=== PATIENT | female | born 1980 | race Caucasian/White ===

== ENCOUNTER 2016-06-13 09:05 | Emergency (ER) | payer MEDICAID ==
[~2016-06-13] VITALS: Ht 165.1 cm; Wt 95.7 kg
[~2016-06-13 09:05] MED LIST: CITA20 PO; CLON1 PO; TRAZ100 PO; XANA0.5T PO
[2016-06-13 09:14] VITALS: BP 128/92; PULSE 83; RESP 16; TEMP 98; O2SAT 99
[2016-06-13] MEDS ORDERED: CLON1 PO (09:51)
[2016-06-13] MEDS ORDERED: DIAZ10 PO (09:51)
[2016-06-13] MEDS ORDERED: SODIUM CHLOR 0.9% 1000 ML INJ 1,000 ML IV SCH (09:52)
[2016-06-13] MEDS ORDERED: ONDANSETRON HCL 4 MG/2 ML VIAL IVP ONE (10:00)
[2016-06-13] MEDS ORDERED: MORPHINE SULFATE 4 MG/ML INJ IV ONE (10:00)
[2016-06-13] MEDS ORDERED: SODIUM CHLORIDE 0.9% FLUSH 5 ML FLUSH IVF PRN (10:00)
--- NOTE | 2016-06-13 10:03 | PD ---
HPI Chief Complaint: Pain: Acute or Chronic Time Seen by Provider: 09:48 Travel History International Travel<30 days: No Contact w/Intl Traveler<30days: No Traveled to known affect area: No History of Present Illness HPI 36 year-old female states she tripped and landed on a coffee table and has pain to her right rib area. She feels like she broke a bone. She denies other complaints. She denies taking blood thinner medications. She did not hit her head. Quality pain is sharp. Severity is moderate. Pain is worse with movement. She denies other modifying factors. PFSH Past Medical History Anxiety: Yes Depression: Yes Cancer: No Cardiovascular Problems: Yes Diabetes: No Diminished Hearing: No Gastrointestinal Disorders: Yes Genitourinary: Yes Musculoskeletal: Yes Neurologic: Yes Psychiatric: Yes (DR. BRAYAN HOFFMAN) Respiratory: Yes Immunizations Current: Yes Tetanus Vaccination: < 5 Years Influenza Vaccination: No ?: Not LMP: 06/02/16 : 1 Para: 1 Miscarriage: 0 : 0 Past Surgical History Body Medical Devices: IUD Other Surgery: Yes (1988 PILONDIAL CYST) Social History Alcohol Use: Yes (Socially) Tobacco Use: Yes (04/21 PPD) Substance Use: Yes (Denies today) Allergies-Medications (Allergen,Severity, Reaction): Coded Allergies: No Known Allergies (Verified , 06/13/16) Reported Meds & Prescriptions Reported Meds & Active Scripts Active Reported Valium (Diazepam) 10 Mg Tab 10 Mg PO HS Klonopin (Clonazepam) 1 Mg Tab 1 Mg PO BID Review of Systems Except as stated in HPI: all other systems reviewed are Neg Physical Exam Narrative General: 36 y/o patient in no apparent distress Skin: Warm and dry Eyes: Pupils equal NECK: no pain with range of motion, nexus criteria negative Cardiovascular: Regular rate and rhythm Chest wall: Tender to right lower lateral ribs Respiratory: Normal respiratory effort noted, clear to auscultation bilaterally Abdomen: soft, tender right upper quadrant, nondistended; pulls my hand away with exam Back: No step-offs, midline spine nontender with palpation Extremities: No specific joint pain Neuro: awake, alert, sensation and motor grossly intact Data Data Last Documented VS Vital Signs Date Time Temp Pulse Resp B/P Pulse Ox O2 Delivery O2 Flow Rate FiO2 06/13/16 10:15 96 Room Air 06/13/16 10:15 62 18 140/87 06/13/16 09:14 98.0 Orders Basic Metabolic Panel (Bmp) (06/13/16 09:52) Complete Blood Count With Diff (06/13/16 09:52) Chest, Single Ap (06/13/16 09:52) Ct Abd/Pel W Iv Contrast(Rout) (06/13/16 09:52) Iv Access Insert/Monitor (06/13/16 09:52) Ecg Monitoring (06/13/16 09:52) Oximetry (06/13/16 09:52) Morphine Inj (Morphine Inj) (06/13/16 10:00) Ondansetron Inj (Zofran Inj) (06/13/16 10:00) Sodium Chlor 0.9% 1000 Ml Inj (Ns 1000 M (06/13/16 09:52) Sodium Chloride 0.9% Flush (Ns Flush) (06/13/16 10:00) Iohexol 350 Inj (Omnipaque 350 Inj) (06/13/16 11:11) Labs Laboratory Tests Test 06/13/16 10:00 White Blood Count 8.6 TH/MM3 Red Blood Count 4.74 MIL/MM3 Hemoglobin 12.8 GM/DL Hematocrit 39.5 % Mean Corpuscular Volume 83.5 FL Mean Corpuscular Hemoglobin 27.0 PG Mean Corpuscular Hemoglobin 32.3 % Concent Red Cell Distribution Width 13.6 % Platelet Count 381 TH/MM3 Mean Platelet Volume 7.8 FL Neutrophils (%) (Auto) 68.6 % Lymphocytes (%) (Auto) 23.5 % Monocytes (%) (Auto) 5.3 % Eosinophils (%) (Auto) 1.7 % Basophils (%) (Auto) 0.9 % Neutrophils # (Auto) 5.9 TH/MM3 Lymphocytes # (Auto) 2.0 TH/MM3 Monocytes # (Auto) 0.5 TH/MM3 Eosinophils # (Auto) 0.1 TH/MM3 Basophils # (Auto) 0.1 TH/MM3 CBC Comment DIFF FINAL Differential Comment Sodium Level 141 MEQ/L Potassium Level 4.5 MEQ/L Chloride Level 107 MEQ/L Carbon Dioxide Level 26.6 MEQ/L Anion Gap 7 MEQ/L Blood Urea Nitrogen 16 MG/DL Creatinine 0.96 MG/DL Estimat Glomerular Filtration 66 ML/MIN Rate Random Glucose 96 MG/DL Calcium Level 9.1 MG/DL MDM Medical Decision Making Medical Screen Exam Complete: Yes Emergency Medical Condition: Yes Medical Record Reviewed: Yes (past history confirmed) Interpretation(s) CBC & BMP Diagram 06/13/16 10:00 Last 24 hours Impressions Chest X-Ray 06/13/16951 Signed Impressions: Service Date/Time: Monday, June 13, 2016 10:49 - CONCLUSION: Normal examination for a patient of this age. Scot Delaney MD Abdomen/Pelvis CT 06/13/16951 Signed Impressions: Service Date/Time: Monday, June 13, 2016 10:58 - CONCLUSION: Negative for acute traumatic injury. Yg Jamil MD FACR Differential Diagnosis Fracture, strain, pneumothorax, liver laceration Narrative Course Will check blood work, trauma imaging and dose with morphine and Zofran and reevaluate ed workup no acute, Patient denies any new complaints, all questions answered. Patient knows that follow up is incumbent on them and to return to the emergency room immediately if new or worsening symptoms develop. Patient given strict return precautions, vitals reviewed and are normal, agrees to further workup as an outpatient. Diagnosis Primary Impression: Rib pain on right side Additional Impression: Abdominal pain Qualified Code: R10.11 - Right upper quadrant abdominal pain Patient Instructions: General Instructions Additional Instructions: return as needed, tylenol as needed, follow with primary Med/Other Pt SpecificInfo: No Change to Meds Disposition: 01 DISCHARGE HOME Condition: Stable Shelley Katz MD Jun 13, 2016 10:03
[2016-06-13 10:06] LABS: AUTOMATED NEUTROPHIL # 5.9 TH/MM3 (1.8-7.7); BASOPHIL # 0.1 TH/MM3 (0-0.2); BASOPHIL % 0.9 % (0.0-2.0); EOSINOPHIL # 0.1 TH/MM3 (0-0.4); EOSINOPHIL % 1.7 % (0.0-4.0); HEMATOCRIT 39.5 % (35.0-46.0); HEMO FLAGS DIFF FINAL; LYMPH % 23.5 % (9.0-44.0); MEAN CELL VOLUME 83.5 FL (80.0-100.0); MEAN CORPUSCULAR HGB CONC 32.3 % (32.0-36.0); MONO % 5.3 % (0.0-8.0); NEUT % 68.6 % (16.0-70.0); PLATELET COUNT 381 TH/MM3 (150-450); RED BLOOD COUNT 4.74 MIL/MM3 (4.00-5.30); RED CELL DISTRIBUTION WIDTH 13.6 % (11.6-17.2); WHITE BLOOD COUNT 8.6 TH/MM3 (4.0-11.0)
[2016-06-13 10:15] VITALS: BP 140/87; PULSE 62; RESP 18; O2SAT 96
[2016-06-13 10:24] LABS: POTASSIUM 4.5 MEQ/L (3.5-5.1)
[2016-06-13 10:28] LABS: BICARBONATE 26.6 MEQ/L (21.0-32.0)
--- NOTE | 2016-06-13 11:09 | RADHPO ---
EXAM DATE/TIME: 06/13/2016 10:49 [facility] COMPARISON: No previous studies available for comparison. INDICATIONS : Chest and rib pain after fall. MEDICAL HISTORY : None. SURGICAL HISTORY : None. ENCOUNTER: Initial ACUITY: 3 days PAIN SCORE: 10/10 LOCATION: Right lower chest FINDINGS: A single view of the chest demonstrates the lungs to be symmetrically aerated without evidence of mas s, infiltrate or effusion. The cardiomediastinal contours are unremarkable. Osseous structures are intact. CONCLUSION: Normal examination for a patient of this age. Scot Delaney MD on June 13, 2016 at 11:08 Board Certified Radiologist. This report was verified electronically.
[2016-06-13] MEDS ORDERED: IOHEXOL 350 MG/ML 10 ML VIAL (for RAD DIAG) IV ONE (11:11)
--- NOTE | 2016-06-13 11:19 | RADHPO ---
EXAM DATE/TIME: 06/13/2016 10:58 [facility] COMPARISON: No previous studies available for comparison. INDICATIONS : Trauma. Fell and hit right lower rib region on coffee table. IV CONTRAST: 85 cc Omnipaque 350 (iohexol) IV ORAL CONTRAST: No oral contrast ingested. RADIATION DOSE: 19.38 CTDIvol (mGy) MEDICAL HISTORY : None SURGICAL HISTORY : None. ENCOUNTER: Initial ACUITY: 2 days PAIN SCALE: 7/10 LOCATION: Right upper quadrant TECHNIQUE: Volumetric scanning of the abdomen and pelvis was performed. Using automated exposure control and adjustment of the mA and/or kV according to patient size, radiation dose was kept as low as reasonably achievable to obtain optimal diagnostic quality images. FINDINGS: The lung base is are clear. The liver, spleen, pancreas and adrenal glands are unremarkable. There is no splenic injury. There is symmetrical renal function. The pelvic contents are unremarkable. There is an IUD in place. Review of bone windows reveals no evidence for fracture. CONCLUSION: Negative for acute traumatic injury. Yg Jamil MD FACR on June 13, 2016 at 11:13 Board Certified Radiologist. This report was verified electronically.
== END 2016-06-13 11:57 | disposition home or self-care (01) ==
LOC: PHEFT 09:05
DX: R07.81 Pleurodynia (principal); R10.11 Right upper quadrant pain; F17.200 Nicotine dependence, unspecified, uncomplicated
CPT/HCPCS: 71010; 74177; 80048; 85025; 96374; 96375; 99284; J2270; J2405; J7030; Q9967

== ENCOUNTER 2016-09-08 14:39 | Emergency (ER) | payer MEDICAID ==
[~2016-09-08] VITALS: Ht 165.1 cm; Wt 96.8 kg
[~2016-09-08 14:39] MED LIST changes: -CITA20 PO; +DIAZ10 PO; -TRAZ100 PO; -XANA0.5T PO
[2016-09-08 14:59] VITALS: BP 141/95; PULSE 88; RESP 16; TEMP 98.3; O2SAT 98
[2016-09-08] MEDS ORDERED: CEPH-460 PO (17:10)
[2016-09-08] MEDS ORDERED: BACT800T5 PO (17:10)
--- NOTE | 2016-09-08 17:12 | PD ---
HPI Chief Complaint: Skin Problem Time Seen by Provider: 16:50 Travel History International Travel<30 days: No Contact w/Intl Traveler<30days: No Traveled to known affect area: No History of Present Illness HPI 36-year-old female presents to the emergency room for evaluation of a painful lesion to her right medial thigh. Patient states it started off as a small boil /ingrown hair and has been getting larger. She states 3 days ago it developed a head and she tried to pop it. The same day, she developed redness around the area. Patient denies any purulent drainage. She has not been applying anything to the area. States it has been extremely painful especially when she walks because her thighs rub together. She has been taking Excedrin without significant relief in symptoms. She denies fever, chills, nausea, and vomiting. PFSH Past Medical History Anxiety: Yes Depression: Yes Cancer: No Cardiovascular Problems: Yes Diabetes: No Diminished Hearing: No Gastrointestinal Disorders: Yes Genitourinary: Yes Implanted Vascular Access Dvce: Yes Musculoskeletal: Yes Neurologic: Yes Psychiatric: Yes (DR. BRAYAN HOFFMAN) Respiratory: Yes Immunizations Current: Yes Tetanus Vaccination: < 5 Years Influenza Vaccination: No ?: Not : 1 Para: 1 Miscarriage: 0 : 0 Past Surgical History Body Medical Devices: IUD Other Surgery: Yes (1988 PILONDIAL CYST) Social History Alcohol Use: Yes (Socially) Tobacco Use: Yes (/2 PPD) Substance Use: Yes (Denies today) Allergies-Medications (Allergen,Severity, Reaction): Coded Allergies: No Known Allergies (Verified , 09/08/16) Reported Meds & Prescriptions Reported Meds & Active Scripts Active Keflex (Cephalexin) 500 Mg Cap 500 Mg PO Q6H 10 Days Bactrim DS (Sulfamethoxazole-Trimethoprim) 800-160 Mg Tab 1 Tab PO BID Reported Valium (Diazepam) 10 Mg Tab 10 Mg PO HS Klonopin (Clonazepam) 1 Mg Tab 1 Mg PO BID Review of Systems Except as stated in HPI: all other systems reviewed are Neg Physical Exam Narrative GENERAL: Well-nourished, well-developed female in no acute distress. Afebrile. Ambulatory. SKIN: Focused skin assessment warm/dry. There is a 2 cm lesion without specific purulent drainage in the left medial thigh. There is a zone of inflammation around it measuring 19 x 10 cm but no lymphangitis. HEAD: Normocephalic. EYES: No scleral icterus. No injection or drainage. NECK: Supple, trachea midline. No JVD or lymphadenopathy. CARDIOVASCULAR: Regular rate and rhythm without murmurs, gallops, or rubs. RESPIRATORY: Breath sounds equal bilaterally. No accessory muscle use. PSYCHIATRIC: No delusional thought processes. No hallucinations. Data Data Last Documented VS Vital Signs Date Time Temp Pulse Resp B/P Pulse Ox O2 Delivery O2 Flow Rate FiO2 09/08/16 14:59 98.3 88 16 141/95 98 Orders Hydroxyzine Pamoate (Vistaril) (09/08/16 16:30) Wound Care (09/08/16 17:12) MDM Medical Decision Making Medical Screen Exam Complete: Yes Emergency Medical Condition: Yes Medical Record Reviewed: Yes Differential Diagnosis Cellulitis versus abscess versus hidradenitis suppurativa Narrative Course 36-year-old female presents to the emergency room for evaluation of red painful area to her right medial thigh for the past 3 days. She is afebrile and well- appearing in the emergency room. Vital signs stable. Physical exam reveals a 2 cm nondraining, nonindurated, nonfluctuant lesion with surrounding cellulitis. There is no appreciable abscess and no indication for incision and drainage at this time. The cellulitis measures 19 x 10 cm with no lymphangitis. While waiting to be seen, patient requested something for anxiety. She has history of anxiety. She was given Vistaril. Patient will be discharged with Bactrim and Keflex. Told to follow up with a primary care physician or return to the emergency room for worsening symptoms. She understands and agrees to plan. Diagnosis Primary Impression: Cellulitis of right thigh Referrals: Primary Care Physician Patient Instructions: Cellulitis (ED), General Instructions Departure Forms: Tests/Procedures, Work Release Enter return to work date: September 10, 2016 Additional Instructions: Rest and drink plenty of fluids. Take Bactrim as directed, until gone. Take Keflex as directed, until gone. Follow up with a primary care physician. Return to emergency room for worsening symptoms, as discussed. Med/Other Pt SpecificInfo: Prescription(s) given Scripts Cephalexin (Keflex)500 Mg Bus383 Mg PO Q6H 10 Days Ref 0 Prov:Kassie Nieto MD 09/08/16 Sulfamethoxazole-Trimethoprim (Bactrim DS)800-160 Mg Tab1 Tab PO BID #20 TAB Ref 0 Prov:Kassie Nieto MD 09/08/16 Disposition: 01 DISCHARGE HOME Condition: Stable Brenda Frias September 08, 2016 17:12
== END 2016-09-08 17:21 | disposition home or self-care (01) ==
LOC: PHED 14:39 → PHEFT 17:21
DX: L03.115 Cellulitis of right lower limb (principal); F41.8 Other specified anxiety disorders; F17.210 Nicotine dependence, cigarettes, uncomplicated
CPT/HCPCS: 99284

== ENCOUNTER 2016-09-23 18:22 | Emergency (ER) | payer MEDICAID ==
[~2016-09-23] VITALS: Ht 165.1 cm; Wt 97.3 kg
[~2016-09-23 18:22] MED LIST changes: +BACT800T5 PO; +CEPH-460 PO
[2016-09-23 18:27] VITALS: BP 138/91; PULSE 63; RESP 16; TEMP 97.9; O2SAT 100
== END 2016-09-23 19:10 | disposition left against medical advice (07) ==
LOC: PHEFT 18:22
DX: L98.8 Other specified disorders of the skin and subcutaneous tissue (principal)
CPT/HCPCS: 99281

== ENCOUNTER 2016-11-01 11:54 | Emergency (ER) | payer MEDICAID ==
[~2016-11-01] VITALS: Ht 172.7 cm; Wt 93.0 kg
[~2016-11-01 11:54] MED LIST changes: -BACT800T5 PO; -CEPH-460 PO
[2016-11-01 12:04] VITALS: BP 157/95; PULSE 87; RESP 18; TEMP 98.4; O2SAT 98
[2016-11-01] MEDS ORDERED: SODIUM CHLORIDE 0.9% FLUSH 10 ML FLUSH IVF PRN (12:15)
--- NOTE | 2016-11-01 12:22 | PD ---
HPI Chief Complaint: Anxiety Time Seen by Provider: 12:09 Travel History International Travel<30 days: No Contact w/Intl Traveler<30days: No Traveled to known affect area: No History of Present Illness HPI Patient is a 36-year-old female with a history of anxiety presents emergency department for evaluation of anxiety attack and states that she's also had a syncopal episode while trying to get out of the car today. Denies any chest pain shortness of breath abdominal pain nausea or vomiting. She admits that she 's been running out of her Klonopin early. She's had visits in the emergency department for this before and has run out of her Klonopin early before as well. She denies any suicidal homicidal ideation. States she's never had a syncopal episode before. States symptoms started just prior to arrival. PFSH Past Medical History Anxiety: Yes Depression: Yes Cancer: No Cardiovascular Problems: Yes Diabetes: No Diminished Hearing: No Gastrointestinal Disorders: Yes Genitourinary: Yes Implanted Vascular Access Dvce: Yes Musculoskeletal: Yes Neurologic: Yes Psychiatric: Yes (DR. BRAYAN HOFFMAN) Reproductive: Yes (IUD IN PLACE) Respiratory: Yes Immunizations Current: Yes Tetanus Vaccination: < 5 Years Influenza Vaccination: No ?: Not : 1 Para: 1 Miscarriage: 0 : 0 Past Surgical History Body Medical Devices: IUD Other Surgery: Yes (Pilonidal cyst ) Social History Alcohol Use: Yes (Occ.) Tobacco Use: Yes (04/22 PPD) Substance Use: No (Denies today) Allergies-Medications (Allergen,Severity, Reaction): Coded Allergies: No Known Allergies (Verified , 11/01/16) Reported Meds & Prescriptions Reported Meds & Active Scripts Active Reported Valium (Diazepam) 10 Mg Tab 10 Mg PO HS Klonopin (Clonazepam) 1 Mg Tab 1 Mg PO BID Review of Systems Except as stated in HPI: all other systems reviewed are Neg Physical Exam Narrative GENERAL: Well-developed well-nourished no obvious distress. SKIN: Focused skin assessment warm/dry. HEAD: Atraumatic. Normocephalic. EYES: Pupils equal and round. No scleral icterus. No injection or drainage. ENT: No nasal bleeding or discharge. Mucous membranes pink and moist. NECK: Trachea midline. No JVD. CARDIOVASCULAR: Regular rate and rhythm. No murmur appreciated. RESPIRATORY: No accessory muscle use. Clear to auscultation. Breath sounds equal bilaterally. GASTROINTESTINAL: Abdomen soft, non-tender, nondistended. Hepatic and splenic margins not palpable. MUSCULOSKELETAL: No obvious deformities. No clubbing. No cyanosis. No edema. NEUROLOGICAL: Awake and alert. No obvious cranial nerve deficits. Motor grossly within normal limits. Normal speech. PSYCHIATRIC: Anxious mood and affect, denies suicidal homicidal ideation, insight and judgment normal. Data Data Last Documented VS Vital Signs Date Time Temp Pulse Resp B/P Pulse Ox O2 Delivery O2 Flow Rate FiO2 11/01/16 12:32 99 Room Air 11/01/16 12:32 19 11/01/16 12:04 98.4 87 157/95 Orders Electrocardiogram (11/01/16 12:14) Basic Metabolic Panel (Bmp) (11/01/16 12:14) Complete Blood Count With Diff (11/01/16 12:14) Troponin I (11/01/16 12:14) Ecg Monitoring (11/01/16 12:14) Iv Access Insert/Monitor (11/01/16 12:14) Oximetry (11/01/16 12:14) Oxygen Administration (11/01/16 12:14) Sodium Chloride 0.9% Flush (Ns Flush) (11/01/16 12:15) Hydroxyzine Pamoate (Vistaril) (11/01/16 12:15) Labs Laboratory Tests Test 11/01/16 12:29 White Blood Count 8.9 TH/MM3 Red Blood Count 4.56 MIL/MM3 Hemoglobin 12.8 GM/DL Hematocrit 37.7 % Mean Corpuscular Volume 82.6 FL Mean Corpuscular Hemoglobin 28.0 PG Mean Corpuscular Hemoglobin 33.9 % Concent Red Cell Distribution Width 14.3 % Platelet Count 377 TH/MM3 Mean Platelet Volume 7.7 FL Neutrophils (%) (Auto) 75.4 % Lymphocytes (%) (Auto) 18.1 % Monocytes (%) (Auto) 5.3 % Eosinophils (%) (Auto) 0.8 % Basophils (%) (Auto) 0.4 % Neutrophils # (Auto) 6.7 TH/MM3 Lymphocytes # (Auto) 1.6 TH/MM3 Monocytes # (Auto) 0.5 TH/MM3 Eosinophils # (Auto) 0.1 TH/MM3 Basophils # (Auto) 0.0 TH/MM3 CBC Comment DIFF FINAL Differential Comment Sodium Level 140 MEQ/L Potassium Level 3.9 MEQ/L Chloride Level 106 MEQ/L Carbon Dioxide Level 27.1 MEQ/L Anion Gap 7 MEQ/L Blood Urea Nitrogen 9 MG/DL Creatinine 0.88 MG/DL Estimat Glomerular Filtration 73 ML/MIN Rate Random Glucose 99 MG/DL Calcium Level 8.9 MG/DL Troponin I LESS THAN 0.02 NG/ML MDM Medical Decision Making Medical Screen Exam Complete: Yes Emergency Medical Condition: Yes Interpretation(s) EKG shows sinus rhythm or sinus arrhythmia, overall rate of 75, normal axis normal R-wave progression. No concerning ST segment changes. Intervals within normal limits. This normal EKG. Differential Diagnosis Syncope, anemia, , arrhythmia, anxiety attack, PEs is been excluded by wells and PERC criteria. Narrative Course Patient roomed in the emergency department, basic laboratory workup including CBC CMP troponin have been ordered, the patient was given hydroxyzine in the emergency department. Initial workup is negative. While waiting for urine test was informed by nursing that the patient got up and left, patient 's mother is on the waiting room and asking to speak with me however I'm disinclined to give out any patient information at this time given privacy loss. The patient did not endorse any suicidal homicidal ideation and is not greatly disabled. She has eloped from the emergency department without discussion of her results or reassessment. Diagnosis Primary Impression: Syncope Additional Impression: Pantera Conley MD Nov 01, 2016 12:22
[2016-11-01 12:32] VITALS: RESP 19; O2SAT 99
[2016-11-01 12:34] LABS: AUTOMATED NEUTROPHIL # 6.7 TH/MM3 (1.8-7.7); BASOPHIL % 0.4 % (0.0-2.0); EOSINOPHIL # 0.1 TH/MM3 (0-0.4); EOSINOPHIL % 0.8 % (0.0-4.0); HEMATOCRIT 37.7 % (35.0-46.0); HEMO FLAGS DIFF FINAL; LYMPH % 18.1 % (9.0-44.0); LYMPHOCYTE # 1.6 TH/MM3 (1.0-4.8); MEAN CELL VOLUME 82.6 FL (80.0-100.0); MEAN CORPUSCULAR HGB CONC 33.9 % (32.0-36.0); MONO % 5.3 % (0.0-8.0); NEUT % 75.4 % (16.0-70.0); PLATELET COUNT 377 TH/MM3 (150-450); RED BLOOD COUNT 4.56 MIL/MM3 (4.00-5.30); RED CELL DISTRIBUTION WIDTH 14.3 % (11.6-17.2); WHITE BLOOD COUNT 8.9 TH/MM3 (4.0-11.0)
[2016-11-01 12:43] LABS: CHLORIDE 106 MEQ/L (98-107); POTASSIUM 3.9 MEQ/L (3.5-5.1); SODIUM (NA) 140 MEQ/L (136-145)
[2016-11-01 12:45] LABS: ANION GAP 7 MEQ/L (5-15); BICARBONATE 27.1 MEQ/L (21.0-32.0)
[2016-11-01 12:46] LABS: BLOOD UREA NITROGEN 9 MG/DL (7-18)
[2016-11-01 12:49] LABS: GLOMERULAR FILTRATION RATE 73 ML/MIN (>89)
--- NOTE | 2016-11-02 12:38 | EKG ---
Date Performed: 11/01/2016 Time Performed: 12:22:48 PTAGE: 36 years EKG: Sinus rhythm WITH SINUS ARRHYTHMIA Compared to prior tracing no significant change NORMAL ECG PREVIOUS TRACING : 01/31/2016 11.38 DOCTOR: Alphonso Henson Interpretating Date/Time 11/02/2016 12:34:10
== END 2016-11-01 13:37 | disposition home or self-care (01) ==
LOC: PHED 11:54
DX: R55 Syncope and collapse (principal); F41.9 Anxiety disorder, unspecified; F17.200 Nicotine dependence, unspecified, uncomplicated
CPT/HCPCS: 80048; 84484; 85025; 93005

== ENCOUNTER 2016-12-06 10:38 | Emergency (ER) | payer MEDICAID ==
[~2016-12-06] VITALS: Ht 165.1 cm; Wt 92.0 kg
[2016-12-06 11:45] VITALS: BP 148/93; PULSE 92; RESP 18; TEMP 98; O2SAT 98
[2016-12-06 11:48] LABS: BLOOD, URINE NEG (NEG); GLUCOSE,URINE NEG (NEG); KETONE, URINE NEG (NEG); NITRITE,URINE NEG (NEG); PH, URINE 5.5 (5.0-8.5)
[2016-12-06 11:51] LABS: METHOD OF COLLECTION CLEAN CATCH; URINE COLOR YELLOW (YELLW/STRAW)
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
[2016-12-06 11:52] LABS: COMMENT (UR) CULTURE INDICATED; CULTURE IF INDICATED CULTURE INDICATED; MUCUS URINE MOD /lpf (OCC); SQUAMOUS EPITHELIAL CELL URINE 0-5 /hpf (0-5)
[2016-12-06] MEDS ORDERED: IOHEXOL 350 MG/ML 10 ML VIAL (for RAD DIAG) IV ONE (11:55)
[2016-12-06] MEDS ORDERED: SODIUM CHLORIDE 0.9% FLUSH 10 ML FLUSH IV FLUSH PRN (12:00)
[2016-12-06 12:11] LABS: AUTOMATED NEUTROPHIL # 7.2 TH/MM3 (1.8-7.7); BASOPHIL % 0.4 % (0.0-2.0); EOSINOPHIL # 0.1 TH/MM3 (0-0.4); EOSINOPHIL % 0.7 % (0.0-4.0); HEMATOCRIT 35.7 % (35.0-46.0); HEMO FLAGS DIFF FINAL; LYMPH % 21.1 % (9.0-44.0); LYMPHOCYTE # 2.1 TH/MM3 (1.0-4.8); MEAN CELL VOLUME 83.4 FL (80.0-100.0); MEAN CORPUSCULAR HEMOGLOBIN 27.7 PG (27.0-34.0); MEAN CORPUSCULAR HGB CONC 33.3 % (32.0-36.0); MONO % 4.3 % (0.0-8.0); NEUT % 73.5 % (16.0-70.0); PLATELET COUNT 288 TH/MM3 (150-450); RED BLOOD COUNT 4.28 MIL/MM3 (4.00-5.30); RED CELL DISTRIBUTION WIDTH 13.1 % (11.6-17.2); WHITE BLOOD COUNT 9.8 TH/MM3 (4.0-11.0)
[2016-12-06 12:25] LABS: CHLORIDE 107 MEQ/L (98-107); POTASSIUM 4.3 MEQ/L (3.5-5.1); SODIUM (NA) 139 MEQ/L (136-145)
[2016-12-06 12:29] LABS: ANION GAP 6 MEQ/L (5-15); BICARBONATE 26.1 MEQ/L (21.0-32.0); BLOOD UREA NITROGEN 10 MG/DL (7-18)
[2016-12-06 12:32] LABS: ALT (GPT) 14 U/L (10-53); AST (GOT) 9 U/L (15-37); GLOMERULAR FILTRATION RATE 85 ML/MIN (>89)
[2016-12-06 12:33] LABS: TOTAL BILIRUBIN ADULT 0.2 MG/DL (0.2-1.0)
[2016-12-06 12:35] LABS: ALKALINE PHOSPHATASE 69 U/L (45-117)
--- NOTE | 2016-12-06 12:40 | RADRPT ---
EXAM DATE/TIME: 12/06/2016 12:25 [place] COMPARISON: CT ABDOMEN & PELVIS W CONTRAST, June 13, 2016, 10:58. INDICATIONS : Lower abdominal pain that radiates to the back on the right. IV CONTRAST: 96 cc Omnipaque 350 (iohexol) IV ORAL CONTRAST: No oral contrast ingested. RADIATION DOSE: 17.48 CTDIvol (mGy) MEDICAL HISTORY : None SURGICAL HISTORY : None. ENCOUNTER: Initial ACUITY: 3 days PAIN SCALE: 6/10 LOCATION: Bilateral lower abdomen. TECHNIQUE: Volumetric scanning of the abdomen and pelvis was performed. Using automated exposure control and ad justment of the mA and/or kV according to patient size, radiation dose was kept as low as reasonably achievable to obtain optimal diagnostic quality images. DICOM format image data is available electro nically for review and comparison. FINDINGS: LOWER LUNGS: The visualized lower lungs are clear. LIVER: Homogeneous density without lesion. There is no dilation of the biliary tree. No calcified gallston es. SPLEEN: Normal size without lesion. PANCREAS: Within normal limits. KIDNEYS: Normal in size and shape. There is no mass, stone or hydronephrosis. ADRENAL GLANDS: Within normal limits. VASCULAR: There is no aortic aneurysm. BOWEL/MESENTERY: The stomach, small bowel, and colon demonstrate no acute abnormality. There is no free intraperitone al air or fluid. Normal appendix. ABDOMINAL WALL: Within normal limits. RETROPERITONEUM: There is no lymphadenopathy. BLADDER: No wall thickening or mass. REPRODUCTIVE: Within normal limits. IUD. INGUINAL: There is no lymphadenopathy or hernia. MUSCULOSKELETAL: Within normal limits for patient age. CONCLUSION: 1. No acute inflammatory process. 2. Normal appendix. 3. Intrauterine device. Moses Barajas MD on December 06, 2016 at 12:37 Board Certified Radiologist. This report was verified electronically.
[2016-12-06 13:10] VITALS: BP 132/74; PULSE 78; RESP 18; TEMP 98.2; O2SAT 98
[2016-12-06] MEDS ORDERED: CIPR-9 PO (13:53)
[2016-12-06] MEDS ORDERED: LIDOCAINE HCL 1% 50 ML VIAL XX ONE (14:00)
[2016-12-06] MEDS ORDERED: AZITHROMYCIN 250 MG TAB PO ONE (14:00)
[2016-12-06] MEDS ORDERED: cefTRIAXone 250 MG VIAL IM ONE (14:00)
[2016-12-06 17:09] LABS: CHLAMYDIA PCR NOT DETECTED (NOT DETECT); NEISSERIA PCR DETECTED (NOT DETECT)
== END 2016-12-06 14:09 | disposition home or self-care (01) ==
LOC: PHED 10:38
DX: R10.30 Lower abdominal pain, unspecified (principal)
CPT/HCPCS: 74177; 80053; 81001; 83605; 83690; 84703; 85025; 87086; 87491; 87591; 96372; 99285; J0696; Q9967

== ENCOUNTER 2017-04-18 19:31 | Emergency (ER) | payer MEDICAID, OTHER ==
[~2017-04-18] VITALS: Ht 165.1 cm; Wt 92.0 kg
[~2017-04-18 19:31] MED LIST changes: +CIPR-9 PO
[2017-04-18 19:51] VITALS: BP 138/76; PULSE 86; RESP 20; TEMP 98.2; O2SAT 98
[2017-04-18 20:17] LABS: AUTOMATED NEUTROPHIL # 4.8 TH/MM3 (1.8-7.7); BASOPHIL # 0.1 TH/MM3 (0-0.2); BASOPHIL % 0.8 % (0.0-2.0); EOSINOPHIL # 0.1 TH/MM3 (0-0.4); EOSINOPHIL % 1.1 % (0.0-4.0); HEMATOCRIT 38.3 % (35.0-46.0); HEMOGLOBIN 12.9 GM/DL (11.6-15.3); LYMPH % 31.1 % (9.0-44.0); LYMPHOCYTE # 2.4 TH/MM3 (1.0-4.8); MEAN CELL VOLUME 81.6 FL (80.0-100.0); MEAN CORPUSCULAR HEMOGLOBIN 27.4 PG (27.0-34.0); MEAN CORPUSCULAR HGB CONC 33.6 % (32.0-36.0); MEAN PLATELET VOLUME 7.6 FL (7.0-11.0); MONOCYTE # 0.5 TH/MM3 (0-0.9); PLATELET COUNT 321 TH/MM3 (150-450); RED CELL DISTRIBUTION WIDTH 14.2 % (11.6-17.2); WHITE BLOOD COUNT 7.8 TH/MM3 (4.0-11.0)
[2017-04-18 20:33] LABS: ALBUMIN 4.1 GM/DL (3.4-5.0); AST (GOT) 12 U/L (15-37); BICARBONATE 23.1 MEQ/L (21.0-32.0); BLOOD UREA NITROGEN 11 MG/DL (7-18); CALCIUM 8.8 MG/DL (8.5-10.1); CHLORIDE 106 MEQ/L (98-107); CREATININE 0.74 MG/DL (0.50-1.00); GLOMERULAR FILTRATION RATE 88 ML/MIN (>89); GLUCOSE,RANDOM 96 MG/DL (74-106); SODIUM (NA) 139 MEQ/L (136-145)
[2017-04-18 20:34] LABS: ALT (GPT) 18 U/L (10-53)
[2017-04-18 20:36] LABS: ACETAMINOPHEN 8.5 MCG/ML (10.0-30.0); ALKALINE PHOSPHATASE 84 U/L (45-117); TOTAL BILIRUBIN ADULT 0.4 MG/DL (0.2-1.0); TOTAL PROTEIN 8.1 GM/DL (6.4-8.2)
--- NOTE | 2017-04-18 20:53 | PD ---
HPI Chief Complaint: Psychiatric Symptoms Time Seen by Provider: 19:58 Travel History International Travel<30 days: No Contact w/Intl Traveler<30days: No Traveled to known affect area: No History of Present Illness HPI 37-year-old white female presents from her department under [place] [employer] by [employer]. Patient states that she went to [facility] earlier today voluntarily and was told that she qualified for outpatient treatment. They did not feel the patient warranted inpatient treatment. The patient continued to argue with her mother. According to the patient she had made suicidal statements to her mother who then in turn called the police. Patient denies any true suicidal ideation. No homicidal ideation. She states that she suffers from chronic back pain, anxiety and psych issues. She denies any recent illness. No toxic ingestions. Denies . PFSH Past Medical History Narrative Medical Anxiety, depression, chronic back pain, substance abuse Anxiety: Yes Depression: Yes Cancer: No Cardiovascular Problems: Yes Diabetes: No Diminished Hearing: No Gastrointestinal Disorders: Yes Genitourinary: Yes Implanted Vascular Access Dvce: Yes Musculoskeletal: Yes Neurologic: Yes Reproductive: Yes (IUD IN PLACE) Respiratory: Yes Immunizations Current: Yes Tetanus Vaccination: Unknown : 1 Para: 1 Miscarriage: 0 : 0 Past Surgical History Body Medical Devices: IUD Other Surgery: Yes (Pilonidal cyst 1988) Social History Alcohol Use: No Tobacco Use: Yes (04/22 PPD) Substance Use: Yes ([facility]) Allergies-Medications (Allergen,Severity, Reaction): Coded Allergies: No Known Allergies (Verified , 11/01/16) Reported Meds & Prescriptions Reported Meds & Active Scripts Active Reported Valium (Diazepam) 10 Mg Tab 10 Mg PO HS Klonopin (Clonazepam) 1 Mg Tab 1 Mg PO BID Review of Systems General / Constitutional: No: Fever Eyes: No: Visual changes HENT: No: Headaches Cardiovascular: No: Chest Pain or Discomfort Respiratory: No: Shortness of Breath Gastrointestinal: No: Abdominal Pain Genitourinary: No: Dysuria Musculoskeletal: Positive: Pain Skin: No Rash Neurologic: No: Weakness Psychiatric: Positive: Anxiety, Depression, Mood Disorder, Substance Abuse, No : Suicidal Ideations, Disorder of Thought, Homicidal Ideation Endocrine: No: Polydipsia Hematologic/Lymphatic: No: Easy Bruising Physical Exam Narrative GENERAL: Well-nourished, well-developed patient. SKIN: Warm and dry. HEAD: Normocephalic and atraumatic. EYES: No scleral icterus. No injection or drainage. ENT: No nasal drainage noted. Mucous membranes pink. Airway patent. NECK: Supple, trachea midline. Moves head freely without obvious discomfort. CARDIOVASCULAR: Regular rate and rhythm without murmurs, gallops, or rubs. RESPIRATORY: Breath sounds equal bilaterally. No accessory muscle use. GASTROINTESTINAL: Abdomen soft, non-tender, nondistended. EXTREMITIES: No cyanosis or edema. BACK: Complains of upper her thoracic fashion tenderness. Without obvious deformity. No CVA tenderness. NEURO: Patient is alert and oriented. no sensorimotor deficits. Nonfocal. Normal speech. PSYCH: No delusions. No auditory or visual hallucinations. Data Data Last Documented VS Vital Signs Date Time Temp Pulse Resp B/P (MAP) Pulse Ox O2 Delivery O2 Flow Rate FiO2 04/18/17 19:51 98.2 86 20 138/76 (96) 98 Orders Orders Complete Blood Count With Diff (04/18/17 19:58) Comprehensive Metabolic Panel (04/18/17 19:58) Ed Urine Pregnancytest Poc (04/18/17 19:58) Psych Screen (04/18/17 19:58) Drug Screen, Random Urine (04/18/17 19:58) Alcohol (Ethanol) (04/18/17 19:58) Salicylates (Aspirin) (04/18/17 19:58) Tylenol (Acetaminophen) (04/18/17 19:58) Labs Laboratory Tests Test 04/18/17 19:50 04/18/17 20:00 Urine Opiates Screen POS Urine Barbiturates Screen NEG Urine Amphetamines Screen NEG Urine Benzodiazepines Screen POS Urine Cocaine Screen NEG Urine Cannabinoids Screen POS White Blood Count 7.8 TH/MM3 Red Blood Count 4.70 MIL/MM3 Hemoglobin 12.9 GM/DL Hematocrit 38.3 % Mean Corpuscular Volume 81.6 FL Mean Corpuscular Hemoglobin 27.4 PG Mean Corpuscular Hemoglobin Concent 33.6 % Red Cell Distribution Width 14.2 % Platelet Count 321 TH/MM3 Mean Platelet Volume 7.6 FL Neutrophils (%) (Auto) 61.0 % Lymphocytes (%) (Auto) 31.1 % Monocytes (%) (Auto) 6.0 % Eosinophils (%) (Auto) 1.1 % Basophils (%) (Auto) 0.8 % Neutrophils # (Auto) 4.8 TH/MM3 Lymphocytes # (Auto) 2.4 TH/MM3 Monocytes # (Auto) 0.5 TH/MM3 Eosinophils # (Auto) 0.1 TH/MM3 Basophils # (Auto) 0.1 TH/MM3 CBC Comment DIFF FINAL Differential Comment Blood Urea Nitrogen 11 MG/DL Creatinine 0.74 MG/DL Random Glucose 96 MG/DL Total Protein 8.1 GM/DL Albumin 4.1 GM/DL Calcium Level 8.8 MG/DL Alkaline Phosphatase 84 U/L Aspartate Amino Transf (AST/SGOT) 12 U/L Alanine Aminotransferase (ALT/SGPT) 18 U/L Total Bilirubin 0.4 MG/DL Sodium Level 139 MEQ/L Potassium Level 3.9 MEQ/L Chloride Level 106 MEQ/L Carbon Dioxide Level 23.1 MEQ/L Anion Gap 10 MEQ/L Estimat Glomerular Filtration Rate 88 ML/MIN Acetaminophen Level 8.5 MCG/ML Ethyl Alcohol Level LESS THAN 3 MG/DL MDM Medical Decision Making Medical Screen Exam Complete: Yes Emergency Medical Condition: Yes Medical Record Reviewed: Yes Interpretation(s) Laboratory Tests Test 04/18/17 19:50 04/18/17 20:00 Urine Opiates Screen POS Urine Barbiturates Screen NEG Urine Amphetamines Screen NEG Urine Benzodiazepines Screen POS Urine Cocaine Screen NEG Urine Cannabinoids Screen POS White Blood Count 7.8 TH/MM3 Red Blood Count 4.70 MIL/MM3 Hemoglobin 12.9 GM/DL Hematocrit 38.3 % Mean Corpuscular Volume 81.6 FL Mean Corpuscular Hemoglobin 27.4 PG Mean Corpuscular Hemoglobin Concent 33.6 % Red Cell Distribution Width 14.2 % Platelet Count 321 TH/MM3 Mean Platelet Volume 7.6 FL Neutrophils (%) (Auto) 61.0 % Lymphocytes (%) (Auto) 31.1 % Monocytes (%) (Auto) 6.0 % Eosinophils (%) (Auto) 1.1 % Basophils (%) (Auto) 0.8 % Neutrophils # (Auto) 4.8 TH/MM3 Lymphocytes # (Auto) 2.4 TH/MM3 Monocytes # (Auto) 0.5 TH/MM3 Eosinophils # (Auto) 0.1 TH/MM3 Basophils # (Auto) 0.1 TH/MM3 CBC Comment DIFF FINAL Differential Comment Blood Urea Nitrogen 11 MG/DL Creatinine 0.74 MG/DL Random Glucose 96 MG/DL Total Protein 8.1 GM/DL Albumin 4.1 GM/DL Calcium Level 8.8 MG/DL Alkaline Phosphatase 84 U/L Aspartate Amino Transf (AST/SGOT) 12 U/L Alanine Aminotransferase (ALT/SGPT) 18 U/L Total Bilirubin 0.4 MG/DL Sodium Level 139 MEQ/L Potassium Level 3.9 MEQ/L Chloride Level 106 MEQ/L Carbon Dioxide Level 23.1 MEQ/L Anion Gap 10 MEQ/L Estimat Glomerular Filtration Rate 88 ML/MIN Acetaminophen Level 8.5 MCG/ML Ethyl Alcohol Level LESS THAN 3 MG/DL Differential Diagnosis MDM: High Differential diagnoses: Schizophrenia, schizoaffective disorder, bipolar, anxiety, depression, adjustment reaction, mood disorder NOS, ODD, depressive disorder NOS, dementia, dementia with agitation, psychosis NOS, substance induced mood disorder, DMDD, Asperger syndrome, infection,electrolyte abnormality, malingering. Narrative Course Mental health screening discussed with the patient. Psychiatric screen ordered. Patient has been medically cleared. This is medical clearance for psychiatric admission, chronic back pain Diagnosis Primary Impression: Medical clearance for psychiatric admission Additional Impression: Chronic back pain Condition: Stable Keyshawn Ann Apr 18, 2017 20:53
[2017-04-18] MEDS ORDERED: OXYC1TAB35 PO (21:23)
[2017-04-18] MEDS ORDERED: ACETAMINOPHEN/HYDROcodone 325 MG/5 MG TAB PO ONE (22:00)
[2017-04-18] MEDS ORDERED: diphenhydrAMINE HCL 50 MG CAP PO ONE (22:00)
[2017-04-18 23:45] VITALS: BP 145/83; PULSE 78; RESP 17; TEMP 98; O2SAT 99
[2017-04-19 06:45] VITALS: BP 118/78; PULSE 72; RESP 18; TEMP 97.9; O2SAT 97
[2017-04-19] MEDS ORDERED: ACETAMINOPHEN/HYDROcodone 325 MG/5 MG TAB PO ONE (07:30)
== END 2017-04-19 10:23 ==
LOC: NEPJ 19:31
DX: G89.29 Other chronic pain (principal); M54.9 Dorsalgia, unspecified; F17.200 Nicotine dependence, unspecified, uncomplicated; F41.9 Anxiety disorder, unspecified; F32.9 Major depressive disorder, single episode, unspecified
CPT/HCPCS: 80053; 80307; 84703; 85025; 99285; Q0163

== ENCOUNTER 2017-06-21 09:32 | Emergency (ER) | payer MEDICAID, OTHER ==
[~2017-06-21] VITALS: Ht 165.1 cm; Wt 95.4 kg
[~2017-06-21 09:32] MED LIST changes: -CIPR-9 PO; +OXYC1TAB35 PO
[2017-06-21 10:02] VITALS: BP 158/103; PULSE 78; RESP 16; TEMP 98.7; O2SAT 97
[2017-06-21] MEDS ORDERED: DIAZ10 PO (10:30)
[2017-06-21] MEDS ORDERED: HYDR-3580 PO (10:30)
--- NOTE | 2017-06-21 11:36 | PD ---
HPI Chief Complaint: Anxiety Time Seen by Provider: 11:05 Travel History International Travel<30 days: No Contact w/Intl Traveler<30days: No Traveled to known affect area: No History of Present Illness HPI Patient states that she has been having increased anxiety episodes, has not been able to sleep because of it for the last 2 days. Patient used to be on Klonopin and Valium which she was taking 3 times a day according to her. Patient states that she has been out of both of those medications for about a month now. Patient had a follow-up appointment of June 12 with her psychiatrist however she had to miss that appointment because she has been working 6 days a week. Patient presents here essentially with episode of anxiety. Patient denies any associated factors such as fever, rash, chest pain , abdominal pain, back pain, nausea, vomiting, diarrhea. Patient denies any alleviating factors, does state that usually the Valium helps. And is aggravated by increased stressors in her life. No known drug allergy Past medical history significant for GERD, depression, anxiety, has primary psychiatrist that she follows up with. PFSH Past Medical History Anxiety: Yes Depression: Yes Cancer: No Cardiovascular Problems: Yes Diabetes: No Patient Takes Glucophage: No Diminished Hearing: No Gastrointestinal Disorders: Yes Genitourinary: Yes Implanted Vascular Access Dvce: Yes Musculoskeletal: Yes Neurologic: Yes Reproductive: Yes (IUD IN PLACE) Respiratory: Yes Immunizations Current: Yes ?: Not LMP: 06/18/17 : 1 Para: 1 Miscarriage: 0 : 0 Past Surgical History Body Medical Devices: IUD Other Surgery: Yes (Pilonidal cyst 1988) Social History Alcohol Use: No Tobacco Use: Yes (04/22 PPD) Substance Use: Yes (marijuana) Allergies-Medications (Allergen,Severity, Reaction): Coded Allergies: No Known Allergies (Verified Adverse Reaction, Unknown, 06/21/17) Reported Meds & Prescriptions Reported Meds & Active Scripts Active Reported Hydrocodone-Acetaminophen 7.5 Mg-325 Mg Tab 1 Tab PO Q6H PRN Valium (Diazepam) 10 Mg Tab 10 Mg PO TID PRN Review of Systems General / Constitutional: No: Fever Eyes: No: Visual changes HENT: No: Headaches Cardiovascular: No: Chest Pain or Discomfort Respiratory: No: Shortness of Breath Gastrointestinal: No: Abdominal Pain Genitourinary: No: Dysuria Musculoskeletal: No: Pain Skin: No Rash Neurologic: No: Weakness Psychiatric: Positive: Anxiety Endocrine: No: Polydipsia Hematologic/Lymphatic: No: Easy Bruising Physical Exam Narrative GENERAL: SKIN: Warm and dry. HEAD: Atraumatic. Normocephalic. EYES: Pupils equal and round. No scleral icterus. No injection or drainage. ENT: No nasal bleeding or discharge. Mucous membranes pink and moist. NECK: Trachea midline. No JVD. CARDIOVASCULAR: Regular rate and rhythm. RESPIRATORY: No accessory muscle use. Clear to auscultation. Breath sounds equal bilaterally. GASTROINTESTINAL: Abdomen soft, non-tender, nondistended. MUSCULOSKELETAL: Extremities without clubbing, cyanosis, or edema. No obvious deformities. NEUROLOGICAL: Awake and alert. No obvious cranial nerve deficits. Motor grossly within normal limits. Five out of 5 muscle strength in the arms and legs. Normal speech. PSYCHIATRIC: Anxious mood and affect; insight and judgment normal. Data Data Last Documented VS Vital Signs Date Time Temp Pulse Resp B/P (MAP) Pulse Ox O2 Delivery O2 Flow Rate FiO2 06/21/17 12:41 76 16 174/90 (118) 99 06/21/17 10:02 98.7 Orders Orders Electrocardiogram (06/21/17 11:15) Complete Blood Count With Diff (06/21/17 11:15) Comprehensive Metabolic Panel (06/21/17 11:15) Troponin I (06/21/17 11:15) B-Type Natriuretic Peptide (06/21/17 11:15) Lipase (06/21/17 11:15) Urinalysis - C+S If Indicated (06/21/17 11:15) Thyroid Stimulating Hormone (06/21/17 11:15) Ed Urine Pregnancytest Poc (06/21/17 11:15) Drug Screen, Random Urine (06/21/17 11:15) Alcohol (Ethanol) (06/21/17 11:15) Salicylates (Aspirin) (06/21/17 11:15) Tylenol (Acetaminophen) (06/21/17 11:15) Lorazepam Inj (Ativan Inj) (06/21/17 12:15) Labs Laboratory Tests Test 06/21/17 11:30 White Blood Count 8.1 TH/MM3 Red Blood Count 4.87 MIL/MM3 Hemoglobin 13.5 GM/DL Hematocrit 40.3 % Mean Corpuscular Volume 82.8 FL Mean Corpuscular Hemoglobin 27.7 PG Mean Corpuscular Hemoglobin Concent 33.5 % Red Cell Distribution Width 14.6 % Platelet Count 374 TH/MM3 Mean Platelet Volume 7.7 FL Neutrophils (%) (Auto) 75.9 % Lymphocytes (%) (Auto) 18.7 % Monocytes (%) (Auto) 4.0 % Eosinophils (%) (Auto) 0.8 % Basophils (%) (Auto) 0.6 % Neutrophils # (Auto) 6.2 TH/MM3 Lymphocytes # (Auto) 1.5 TH/MM3 Monocytes # (Auto) 0.3 TH/MM3 Eosinophils # (Auto) 0.1 TH/MM3 Basophils # (Auto) 0.0 TH/MM3 CBC Comment DIFF FINAL Differential Comment Urine Color YELLOW Urine Turbidity CLEAR Urine pH 7.0 Urine Specific [place] LESS/EQUAL 1.005 Urine Protein NEG mg/dL Urine Glucose (UA) NEG mg/dL Urine Ketones NEG mg/dL Urine Occult Blood NEG Urine Nitrite NEG Urine Bilirubin NEG Urine Urobilinogen 0.2 MG/DL Urine Leukocyte Esterase NEG Urine WBC 0-2 /hpf Urine Squamous Epithelial Cells 0-5 /hpf Microscopic Urinalysis Comment CULT NOT INDICATED Blood Urea Nitrogen 10 MG/DL Creatinine 0.83 MG/DL Random Glucose 102 MG/DL Total Protein 8.1 GM/DL Albumin 3.9 GM/DL Calcium Level 8.6 MG/DL Alkaline Phosphatase 92 U/L Aspartate Amino Transf (AST/SGOT) 13 U/L Alanine Aminotransferase (ALT/SGPT) 16 U/L Total Bilirubin 0.4 MG/DL Sodium Level 137 MEQ/L Potassium Level 4.2 MEQ/L Chloride Level 104 MEQ/L Carbon Dioxide Level 26.7 MEQ/L Anion Gap 6 MEQ/L Estimat Glomerular Filtration Rate 77 ML/MIN Troponin I LESS THAN 0.02 NG/ML B-Type Natriuretic Peptide 53 PG/ML Lipase 106 U/L Thyroid Stimulating Hormone 3rd Gen 1.010 uIU/ML Salicylates Level 2.3 MG/DL Urine Opiates Screen NEG Urine Barbiturates Screen NEG Urine Amphetamines Screen NEG Urine Benzodiazepines Screen NEG Urine Cocaine Screen NEG Urine Cannabinoids Screen POS Ethyl Alcohol Level LESS THAN 3 MG/DL MDM Medical Decision Making Medical Screen Exam Complete: Yes Emergency Medical Condition: Yes Medical Record Reviewed: Yes Interpretation(s) EKG shows normal sinus rhythm at 74 bpm, has an incomplete right bundle branch block, and has no evidence of any LVH or STEMI pattern noted at this time. Differential Diagnosis Hyperthyroid versus anxiety versus anemia versus electrolyte abnormality Narrative Course CBC shows no leukocytosis, no anemia, normal platelet count. And no left shift. Urinalysis is negative for evidence of UTI. Tox screen is currently only positive for marijuana Complete metabolic profile shows normal electrolytes, normal kidney functions, normal liver functions, normal lipase, normal TSH and negative troponin and normal beta natruretic peptide Diagnosis Primary Impression: Stress reaction Patient Instructions: Anxiety (ED), General Instructions Additional Instructions: PLEASE FOLLOW UP WITH YOUR DOCTOR FOR FURTHER PRESCRIPTION REFILLS. Disposition: DISCHARGE HOME Condition: Stable Antwan Najera MD Jun 21, 2017 11:36
[2017-06-21 11:47] LABS: AUTOMATED NEUTROPHIL # 6.2 TH/MM3 (1.8-7.7); BASOPHIL % 0.6 % (0.0-2.0); EOSINOPHIL # 0.1 TH/MM3 (0-0.4); EOSINOPHIL % 0.8 % (0.0-4.0); HEMATOCRIT 40.3 % (35.0-46.0); HEMOGLOBIN 13.5 GM/DL (11.6-15.3); LYMPH % 18.7 % (9.0-44.0); LYMPHOCYTE # 1.5 TH/MM3 (1.0-4.8); MEAN CELL VOLUME 82.8 FL (80.0-100.0); MEAN CORPUSCULAR HEMOGLOBIN 27.7 PG (27.0-34.0); MEAN CORPUSCULAR HGB CONC 33.5 % (32.0-36.0); MEAN PLATELET VOLUME 7.7 FL (7.0-11.0); MONOCYTE # 0.3 TH/MM3 (0-0.9); NEUT % 75.9 % (16.0-70.0); PLATELET COUNT 374 TH/MM3 (150-450); RED BLOOD COUNT 4.87 MIL/MM3 (4.00-5.30); RED CELL DISTRIBUTION WIDTH 14.6 % (11.6-17.2); WHITE BLOOD COUNT 8.1 TH/MM3 (4.0-11.0)
[2017-06-21 11:56] LABS: CHLORIDE 104 MEQ/L (98-107); SODIUM (NA) 137 MEQ/L (136-145)
[2017-06-21 11:57] LABS: BILIRUBIN, URINE NEG (NEG); BLOOD, URINE NEG (NEG); GLUCOSE,URINE NEG (NEG); KETONE, URINE NEG (NEG); NITRITE,URINE NEG (NEG); URINE COLOR YELLOW (YELLW/STRAW); URINE LEUKOCYTE ESTERASE NEG (NEG)
[2017-06-21 12:01] LABS: ALBUMIN 3.9 GM/DL (3.4-5.0); BICARBONATE 26.7 MEQ/L (21.0-32.0); BLOOD UREA NITROGEN 10 MG/DL (7-18); CALCIUM 8.6 MG/DL (8.5-10.1); GLUCOSE,RANDOM 102 MG/DL (74-106)
[2017-06-21 12:04] LABS: ALT (GPT) 16 U/L (10-53); AST (GOT) 13 U/L (15-37); CREATININE 0.83 MG/DL (0.50-1.00); GLOMERULAR FILTRATION RATE 77 ML/MIN (>89)
[2017-06-21 12:05] LABS: SQUAMOUS EPITHELIAL CELL URINE 0-5 /hpf (0-5); WBC, URINE 0-2 /hpf (0-5)
[2017-06-21 12:06] LABS: TOTAL BILIRUBIN ADULT 0.4 MG/DL (0.2-1.0); TOTAL PROTEIN 8.1 GM/DL (6.4-8.2)
[2017-06-21 12:07] LABS: ALKALINE PHOSPHATASE 92 U/L (45-117)
[2017-06-21 12:09] LABS: TROPONIN I LESS THAN 0.02 NG/ML (0.02-0.05)
[2017-06-21] MEDS ORDERED: LORazepam 2 MG/ML VIAL IV PUSH ONE (12:15)
[2017-06-21 12:41] VITALS: BP 174/90; PULSE 76; RESP 16; O2SAT 99
--- NOTE | 2017-06-21 13:17 | EKG ---
Date Performed: 06/21/2017 Time Performed: 11:24:26 PTAGE: 37 years EKG: Sinus rhythm WITH SINUS ARRHYTHMIA POSSIBLE RIGHT VENTRICULAR CONDUCTION DELAY BORDERLINE ECG PREVIOUS TRACING : 11/01/2016 12.22 DOCTOR: Fabián Rodríguez Interpretating Date/Time 06/21/2017 13:15:31
[2017-06-21 13:18] LABS: ACETAMINOPHEN LESS THAN 2.0 MCG/ML (10.0-30.0)
== END 2017-06-21 13:30 | disposition home or self-care (01) ==
LOC: PHED 09:32
DX: F43.9 Reaction to severe stress, unspecified (principal); R94.31 Abnormal electrocardiogram [ECG] [EKG]; F17.210 Nicotine dependence, cigarettes, uncomplicated; Z79.899 Other long term (current) drug therapy
CPT/HCPCS: 80053; 80307; 81001; 83690; 83880; 84443; 84484; 84703; 85025; 93005; 96374; 99284; J2060

== ENCOUNTER 2017-06-25 09:07 | Emergency (ER) | payer OTHER ==
[~2017-06-25] VITALS: Ht 165.1 cm; Wt 96.0 kg
[~2017-06-25 09:07] MED LIST changes: -CLON1 PO; +HYDR-3580 PO; -OXYC1TAB35 PO
[2017-06-25 09:14] VITALS: BP 156/77; PULSE 71; RESP 16; O2SAT 100
[2017-06-25 09:32] VITALS: TEMP 97.5
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
[2017-06-25 09:52] VITALS: PULSE 88; RESP 18; TEMP 98.1; O2SAT 97
[2017-06-25] MEDS ORDERED: LORazepam 2 MG TAB PO ONE (10:00)
== END 2017-06-25 10:38 | disposition home or self-care (01) ==
LOC: PHED 09:07
DX: F41.9 Anxiety disorder, unspecified (principal); F32.9 Major depressive disorder, single episode, unspecified; F17.210 Nicotine dependence, cigarettes, uncomplicated; Z79.899 Other long term (current) drug therapy
CPT/HCPCS: 99281; 99283

== ENCOUNTER 2017-08-25 00:44 | Inpatient (IN) | payer OTHER ==
[~2017-08-25] VITALS: Ht 165.1 cm; Wt 93.0 kg
[2017-08-25 00:57] VITALS: BP 142/80; PULSE 111; RESP 16; TEMP 98.6; O2SAT 98
[2017-08-25 01:55] LABS: ALBUMIN 4.4 GM/DL (3.4-5.0); ALT (GPT) 41 U/L (10-53); AST (GOT) 94 U/L (15-37); BICARBONATE 20.9 MEQ/L (21.0-32.0); BLOOD UREA NITROGEN 20 MG/DL (7-18); CALCIUM 9.2 MG/DL (8.5-10.1); CHLORIDE 101 MEQ/L (98-107); CREATININE 0.98 MG/DL (0.50-1.00); GLOMERULAR FILTRATION RATE 64 ML/MIN (>89); GLUCOSE,RANDOM 80 MG/DL (74-106); SODIUM (NA) 137 MEQ/L (136-145)
[2017-08-25 01:57] LABS: AUTOMATED NEUTROPHIL # 8.6 TH/MM3 (1.8-7.7); BASOPHIL # 0.1 TH/MM3 (0-0.2); BASOPHIL % 0.6 % (0.0-2.0); EOSINOPHIL # 0.1 TH/MM3 (0-0.4); EOSINOPHIL % 0.4 % (0.0-4.0); HEMATOCRIT 38.8 % (35.0-46.0); LYMPH % 22.4 % (9.0-44.0); LYMPHOCYTE # 2.8 TH/MM3 (1.0-4.8); MEAN CELL VOLUME 81.6 FL (80.0-100.0); MEAN CORPUSCULAR HEMOGLOBIN 27.2 PG (27.0-34.0); MEAN CORPUSCULAR HGB CONC 33.4 % (32.0-36.0); MEAN PLATELET VOLUME 8.4 FL (7.0-11.0); MONO % 7.3 % (0.0-8.0); MONOCYTE # 0.9 TH/MM3 (0-0.9); NEUT % 69.3 % (16.0-70.0); PLATELET COUNT 375 TH/MM3 (150-450); RED BLOOD COUNT 4.76 MIL/MM3 (4.00-5.30); RED CELL DISTRIBUTION WIDTH 14.2 % (11.6-17.2); WHITE BLOOD COUNT 12.4 TH/MM3 (4.0-11.0)
[2017-08-25] MEDS ORDERED: LORazepam 2 MG/ML VIAL IM ONE ×2 (02:00→09:00)
[2017-08-25 02:06] LABS: ALKALINE PHOSPHATASE 119 U/L (45-117); TOTAL BILIRUBIN ADULT 1.2 MG/DL (0.2-1.0); TOTAL PROTEIN 8.3 GM/DL (6.4-8.2)
[2017-08-25 02:09] LABS: ACETAMINOPHEN LESS THAN 2.0 MCG/ML (10.0-30.0)
--- NOTE | 2017-08-25 02:42 | PD ---
HPI Chief Complaint: Psychiatric Symptoms Time Seen by Provider: 01:06 Travel History International Travel<30 days: No Contact w/Intl Traveler<30days: No Traveled to known affect area: No History of Present Illness HPI Patient is a 37-year-old female presenting to the emergency department under [place] act for psychiatric evaluation. Patient has allegedly been hallucinating , fixated on someone stealing her car. Patient's mother called the police due to patient's hallucinations. Patient admits that someone is trying to steal her car, someone made a dubose to her car and is going to take it if she stays in the emergency department. She has no physical complaints at this time. She denies any illicit drug use. She denied any psychiatric history. Mother states that she is bipolar per the Nelson act report. Symptom onset is unknown, symptoms are moderate in nature. PFSH Past Medical History Hx Anticoagulant Therapy: No Anxiety: Yes Depression: Yes Cancer: No Cardiovascular Problems: No Chemotherapy: No Cerebrovascular Accident: No Diabetes: No Diminished Hearing: No Gastrointestinal Disorders: Yes Genitourinary: Yes Implanted Vascular Access Dvce: Yes Musculoskeletal: Yes Neurologic: Yes Reproductive: Yes (IUD IN PLACE) Respiratory: No Immunizations Current: Yes ?: Not : 1 Para: 1 Miscarriage: 0 : 0 Past Surgical History Body Medical Devices: IUD Hysterectomy: No Other Surgery: Yes (Pilonidal cyst 1988) Social History Alcohol Use: No Tobacco Use: Yes (04/22 PPD) Substance Use: Yes (marijuana) Allergies-Medications (Allergen,Severity, Reaction): Coded Allergies: No Known Allergies (Verified Adverse Reaction, Unknown, 08/25/17) Reported Meds & Prescriptions Reported Meds & Active Scripts Active Reported Hydrocodone-Acetaminophen 7.5 Mg-325 Mg Tab 1 Tab PO Q6H PRN Valium (Diazepam) 10 Mg Tab 10 Mg PO TID PRN Review of Systems Except as stated in HPI: all other systems reviewed are Neg Psychiatric: Positive: Disorder of Thought, Mood Disorder, No: Suicidal Ideations, Homicidal Ideation Physical Exam Narrative GENERAL: Well developed, well-kept, well-nourished, alert female. Presenting in no acute distress. SKIN: Warm and dry. HEAD: Atraumatic. Normocephalic. EYES: Pupils equal and round. No scleral icterus. No injection or drainage. ENT: No nasal bleeding or discharge. Mucous membranes pink and moist. NECK: Trachea midline. No JVD. CARDIOVASCULAR: Tachycardic RESPIRATORY: No accessory muscle use. Clear to auscultation. Breath sounds equal bilaterally. GASTROINTESTINAL: Abdomen soft, non-tender, nondistended. Hepatic and splenic margins not palpable. MUSCULOSKELETAL: Extremities without clubbing, cyanosis, or edema. No obvious deformities. NEUROLOGICAL: Awake and alert. No obvious cranial nerve deficits. Motor grossly within normal limits. Five out of 5 muscle strength in the arms and legs. Normal speech. PSYCHIATRIC: Agitated mood and affect; insight and judgment impaired. Data Data Last Documented VS Vital Signs Date Time Temp Pulse Resp B/P (MAP) Pulse Ox O2 Delivery O2 Flow Rate FiO2 08/25/17 00:57 98.6 111 16 142/80 (100) 98 Orders Orders Complete Blood Count With Diff (08/25/17 01:06) Comprehensive Metabolic Panel (08/25/17 01:06) Thyroid Stimulating Hormone (08/25/17 01:06) Psych Screen (08/25/17 01:06) Drug Screen, Random Urine (08/25/17 01:06) Alcohol (Ethanol) (08/25/17 01:06) Salicylates (Aspirin) (08/25/17 01:06) Tylenol (Acetaminophen) (08/25/17 01:06) Lorazepam Inj (Ativan Inj) (08/25/17 02:00) Labs Laboratory Tests Test 08/25/17 01:01 08/25/17 01:12 White Blood Count 12.4 TH/MM3 Red Blood Count 4.76 MIL/MM3 Hemoglobin 13.0 GM/DL Hematocrit 38.8 % Mean Corpuscular Volume 81.6 FL Mean Corpuscular Hemoglobin 27.2 PG Mean Corpuscular Hemoglobin Concent 33.4 % Red Cell Distribution Width 14.2 % Platelet Count 375 TH/MM3 Mean Platelet Volume 8.4 FL Neutrophils (%) (Auto) 69.3 % Lymphocytes (%) (Auto) 22.4 % Monocytes (%) (Auto) 7.3 % Eosinophils (%) (Auto) 0.4 % Basophils (%) (Auto) 0.6 % Neutrophils # (Auto) 8.6 TH/MM3 Lymphocytes # (Auto) 2.8 TH/MM3 Monocytes # (Auto) 0.9 TH/MM3 Eosinophils # (Auto) 0.1 TH/MM3 Basophils # (Auto) 0.1 TH/MM3 CBC Comment DIFF FINAL Differential Comment Blood Urea Nitrogen 20 MG/DL Creatinine 0.98 MG/DL Random Glucose 80 MG/DL Total Protein 8.3 GM/DL Albumin 4.4 GM/DL Calcium Level 9.2 MG/DL Alkaline Phosphatase 119 U/L Aspartate Amino Transf (AST/SGOT) 94 U/L Alanine Aminotransferase (ALT/SGPT) 41 U/L Total Bilirubin 1.2 MG/DL Sodium Level 137 MEQ/L Potassium Level 3.4 MEQ/L Chloride Level 101 MEQ/L Carbon Dioxide Level 20.9 MEQ/L Anion Gap 15 MEQ/L Estimat Glomerular Filtration Rate 64 ML/MIN Thyroid Stimulating Hormone 3rd Gen 1.210 uIU/ML Salicylates Level 3.5 MG/DL Acetaminophen Level LESS THAN 2.0 MCG/ML Ethyl Alcohol Level LESS THAN 3 MG/DL Urine Opiates Screen NEG Urine Barbiturates Screen NEG Urine Amphetamines Screen POS Urine Benzodiazepines Screen POS Urine Cocaine Screen NEG Urine Cannabinoids Screen POS MDM Medical Decision Making Medical Screen Exam Complete: Yes Emergency Medical Condition: Yes Interpretation(s) Vital Signs Date Time Temp Pulse Resp B/P (MAP) Pulse Ox O2 Delivery O2 Flow Rate FiO2 08/25/17 00:57 98.6 111 16 142/80 (100) 98 Differential Diagnosis Mood disorder versus psychosis versus schizophrenia versus bipolar disorder versus metabolic abnormality versus o substance abuse Narrative Course Patient is a 37-year-old female presenting under Nelson act for psychiatric evaluation. Patient is well-appearing although agitated. She continues to focus on someone trying to steal her car. She is tachycardic on arrival however again she is agitated. Mental health screening discussed with the patient. Psychiatric screen ordered. CBC with a white count 12.4, likely stress related Chemistry with potassium of 3.4, oral replacement ordered. Thyroid is normal, urine drug screen is positive for benzos, amphetamines, marijuana. Patient is resting comfortably, heart rate has normalized. Patient is medically cleared for psychiatric evaluation. Diagnosis Primary Impression: Medical clearance for psychiatric admission Condition: Stable Valeriano,Daisy VILLANUEVA August 25, 2017 02:42
[2017-08-25] MEDS ORDERED: POTASSIUM CHLORIDE 10 MEQ CONTROLLED RELEASE TAB PO ONE (02:45)
[2017-08-25 06:13] VITALS: PULSE 84; RESP 12; O2SAT 97
[2017-08-25] MEDS ORDERED: diphenhydrAMINE HCL 50 MG CAP PO ONE ×2 (11:00→15:30)
[2017-08-25] MEDS ORDERED: OLANZapine ODT 10 MG TAB PO ONE (15:30)
[2017-08-25 17:20] VITALS: BP 136/81; PULSE 100; RESP 20; TEMP 98.4; O2SAT 96
[2017-08-26 03:20] VITALS: BP 128/76; PULSE 91; RESP 18; O2SAT 97
[2017-08-26] MEDS ORDERED: MAGNESIUM HYDROXIDE SUSP 30 ML CUP PO PRN (07:45)
[2017-08-26] MEDS ORDERED: LORazepam 2 MG/ML VIAL IM PRN ×2 (07:45)
[2017-08-26] MEDS ORDERED: LORazepam 0.5 MG TAB PO PRN (07:45)
[2017-08-26] MEDS ORDERED: LORazepam 1 MG TAB PO PRN (07:45)
[2017-08-26] MEDS ORDERED: ACETAMINOPHEN 325 MG TAB PO PRN (07:45)
[2017-08-26] MEDS ORDERED: ALUMINUM/MAGNESIUM/SIMETH 30 ML CUP PO PRN (07:45)
[2017-08-26] MEDS ORDERED: HALOPERIDOL LACTATE 5 MG/ML AMP IM STA (08:49)
[2017-08-26] MEDS ORDERED: LORazepam 2 MG/ML VIAL IM ONE (09:00)
[2017-08-26] MEDS: OLANZapine 5 MG TAB PO SCH ×2 (09:00→20:54)
[2017-08-26] MEDS: NICOTINE 21 MG/24 HR PATCH T-DERMAL SCH (09:00)
[2017-08-26 10:12] VITALS: BP 131/77; PULSE 94; RESP 18; O2SAT 97
--- NOTE | 2017-08-26 12:17 | HHI.HP ---
Provisional Diagnosis Admission Date August 26, 2017 at 07:41 [place] I. Unspecified psychosis, r/o substance-induced psychosis, r/o delusional disorder , paranoid type, r/o schizophrenia [place] II. Borderline personality disorder [place] III. No significant medical history [place] IV. Noncompliant with psychotropics, unemployed [place] V. 35 Certification of Person's Competence To Provide Express and Informed Consent I have personally examined Natalie Lam , a person being served at [facility] on, August 26, 2017 12:03. Express and informed consent means consent voluntarily given in writing, by a competent person, after sufficient explanation and disclosure of the subject matter involved to enable the person to make a knowing and willful decision without any element of force, fraud, deceit, duress, or other form of constraint or coercion. This person is 18 years of age or older, is not now known to be incompetent to consent to treatment with a guardian advocate, and does not have a health care surrogate or proxy currently making medical treatment decisions. I have found this person to be one of the following: [] Competent to provide express and informed consent, as defined above, for voluntary admission to this facility and is competent to provide express and informed consent for treatment. He/she has the consistent capacity to make well reasoned, willful, and knowing decisions concerning his or her medical or mental health treatment. The person fully and consistently understands the purpose of the admission for examination/placement and is fully capable of personally exercising all rights [place] Incompetent to provide express and informed consent to voluntary admission, and this is incompetent to provide express and informed consent to treatment. The person must be transferred to involuntary status and a petition for a guardian advocate filed with the Circuit Court. [x] Refusing to provide express and informed consent to voluntary admission but is competent to provide express and informed consent for treatment. The person must be discharged or transferred to involuntary status. Form shall be completed within 24 hours of a person's arrival at the receiving facility and filed in the clinical record of each person: 1. Admitted on a voluntary basis 2. Permitted to provide express and informed consent to his/her own treatment 3. Allowed to transfer from involuntary to voluntary status 4. Prior to permitting a person to consent to his or her own treatment after having been previously found incompetent to consent to treatment. History of Present Illness Capacity: Has Capacity HPI The patient is a 37-year-old woman, domiciled with her mother in [place], , unemployed, with psychiatric history of bipolar disorder, borderline personality disorder, anxiety, cannabis, amphetamines, ectasis use disorder, 2 previous psychiatric hospitalizations, 2 previous suicidal attempts , last hospitalization was in March in [place], she has being in stable in olanzapine 5 mg, Valium 10 mg at bedtime and Prozac 10 mg, multiple ER visits in the last months due to anxiety and adjustment, no significant medical history, presents to the emergency department under Nelson act for psychiatric evaluation. Patient has allegedly been hallucinating, fixated on someone stealing her car. Patient's mother called the police due to patient's hallucinations. Patient admits that someone is trying to steal her car, someone made a dubose to her car and is going to take it if she stays in the emergency department. She has no physical complaints at this time. She denies any illicit drug use. She denied any psychiatric history. Mother states that she is bipolar per the [place] act report. Symptom onset is unknown, symptoms are moderate in nature. Utox +thc, Amphe, Benzo. EMR was reviewed. Case was widely discussed with nursing staff. Also collateral information from her mother Janiya, , was obtained. On psychiatric evaluation I find a patient that is quite agitated, irritable, requesting to be discharged because my car is going to be stolen, there are many people trying to steal my car. The patient reports that she was recently in a democrat and she left her dubose over a table and she is very sure that multiple people made copies. She says that in the last day she has been seeing a lot of people around the corner of her house looking at her car. Yesterday, she says, she so many of her neighbors inside the car. As the patient is talking, she walked out of the room asking for a telephone to call her mother just to make sure her car is in its place. The patient does not seem to be able to rationalize, calm down and answered my questions. She is fixed and what seems to be an encapsulated delusion of her car being stolen. Her mother, in the other hand, he states that the patient found a new boy about a week ago, disappear with this karan for about 5 days, and since she got home she has been completely another person. She has been not sleeping, talking to herself, seeing things and people do not assist, talking nonsensical things, and quite distorted with the persisting idea that her car is going to be a stolen. He got to the point of calling the police multiple time. Her mother states that the patient admitted that in the last 5 days, while she has being out with her boyfriend, she used multiple drugs including ecstasy and amphetamines. She clarifies that the patient has been admitted twice before, the patient carries the diagnosis of bipolar disorder and borderline personality disorder. She also has multiple suicidal attempts. She denies that the patient had a similar episode like this before. Patient's father was schizophrenic. Review of Systems Constitutional: DENIES: Diaphoretic episodes, Fatigue, Fever, Weight gain, Weight loss, Chills, Dizziness, Change in appetite, Night Sweats Eyes: DENIES: Blurred vision, Diplopia, Eye inflammation, Eye pain, Vision loss , Photosensitivity, Double Vision Ears, nose, mouth, throat: DENIES: Tinnitus, Hearing loss, Vertigo, Nasal discharge, Oral lesions, Throat pain, Hoarseness, Ear Pain, Running Nose, Epistaxis, Sinus Pain, Toothache, Odynophagia Respiratory: DENIES: Apneas, Cough, Snoring, Wheezing, Hemoptysis, Sputum production, Shortness of breath Cardiovascular: DENIES: Chest pain, Palpitations, Syncope, Dyspnea on Exertion , PND, Lower Extremity Edema, Orthopnea, Claudication Gastrointestinal: DENIES: Abdominal pain, Black stools, Bloody stools, Constipation, Diarrhea, Nausea, Vomiting, Difficulty Swallowing, Anorexia Genitourinary: DENIES: Abnormal vaginal bleeding, Dysmenorrhea, Dyspareunia, Sexual dysfunction, Urinary frequency, Urinary incontinence, Urgency, Hematuria , Dysuria, Nocturia, Vaginal discharge Musculoskeletal: DENIES: Joint pain, Muscle aches, Stiffness, Joint Swelling, Back pain, Neck pain Integumentary: DENIES: Abnormal pigmentation, Pruritus, Rash, Nail changes, Breast masses, Breast skin changes, Nipple discharge Hematologic/lymphatic: DENIES: Bruising, Lymphadenopathy Immunologic/allergic: DENIES: Eczema, Urticaria Neurologic: DENIES: Abnormal gait, Headache, Localized weakness, Paresthesias, Seizures, Speech Problems, Tremor, Poor Balance Psychiatric: COMPLAINS OF: Confusion, Hallucinations, Delusions Past Psych History Violence risk - others (6 mos) Increased Violence risk - self (6 mos) Increased Substance Abuse History Drugs/Alcohol past 12 months She uses amphetamines, ectasis, marijuana Past Family Social History Coded Allergies: No Known Allergies (Verified Adverse Reaction, Unknown, 08/25/17) Reported Medications Hydrocodone-Acetaminophen (Hydrocodone-Acetaminophen) 7.5 Mg-325 Mg Tab, 1 TAB PO Q6H Y for PAIN, TAB 0 Refills 06/21/17 Diazepam (Valium) 10 Mg Tab, 10 MG PO TID Y for ANXIETY, TAB 0 Refills 06/21/17 Current Medications Medications (Trade) Dose Ordered Sig/Amy Route Start Time Stop Time Status Last Admin (Ativan) 1 mg Q6H PRN PO 08/26/17 07:45 (Ativan Inj) 1 mg Q6H PRN IM 08/26/17 07:45 (Tylenol) 650 mg Q4H PRN PO 08/26/17 07:45 (Milk Of Magnesia Liq) 30 ml DAILY PRN PO 08/26/17 07:45 (Mag-Al Plus Susp Liq) 30 ml Q6H PRN PO 08/26/17 07:45 (Habitrol 21 Mg Patch.24 Hr) 1 patch DAILY T-DERMAL 08/26/17 09:00 Miscellaneous Information 1 HS T-DERMAL 08/26/17 21:00 (ZyPREXA) 5 mg Q12HR PO 08/26/17 09:00 Family Psych History Her father was diagnosed with schizophrenia Social History Patient was born and raised in [place], she lives in [place] with her mother , she is , no kids, unemployed, her highest level of education is high school Patient's Strengths (min. 2) Family support Physical Exam Patient is quite agitated, restless, but no gait disturbance, no EPS present Vital Signs Vital Signs Date Time Temp Pulse Resp B/P (MAP) Pulse Ox O2 Delivery O2 Flow Rate FiO2 08/26/17 10:12 94 18 131/77 (95) 97 Room Air 08/25/17 17:20 98.4 Lab Results Laboratory Tests Test 08/25/17 01:01 08/25/17 01:12 White Blood Count 12.4 TH/MM3 Red Blood Count 4.76 MIL/MM3 Hemoglobin 13.0 GM/DL Hematocrit 38.8 % Mean Corpuscular Volume 81.6 FL Mean Corpuscular Hemoglobin 27.2 PG Mean Corpuscular Hemoglobin Concent 33.4 % Red Cell Distribution Width 14.2 % Platelet Count 375 TH/MM3 Mean Platelet Volume 8.4 FL Neutrophils (%) (Auto) 69.3 % Lymphocytes (%) (Auto) 22.4 % Monocytes (%) (Auto) 7.3 % Eosinophils (%) (Auto) 0.4 % Basophils (%) (Auto) 0.6 % Neutrophils # (Auto) 8.6 TH/MM3 Lymphocytes # (Auto) 2.8 TH/MM3 Monocytes # (Auto) 0.9 TH/MM3 Eosinophils # (Auto) 0.1 TH/MM3 Basophils # (Auto) 0.1 TH/MM3 CBC Comment DIFF FINAL Differential Comment Blood Urea Nitrogen 20 MG/DL Creatinine 0.98 MG/DL Random Glucose 80 MG/DL Total Protein 8.3 GM/DL Albumin 4.4 GM/DL Calcium Level 9.2 MG/DL Alkaline Phosphatase 119 U/L Aspartate Amino Transf (AST/SGOT) 94 U/L Alanine Aminotransferase (ALT/SGPT) 41 U/L Total Bilirubin 1.2 MG/DL Sodium Level 137 MEQ/L Potassium Level 3.4 MEQ/L Chloride Level 101 MEQ/L Carbon Dioxide Level 20.9 MEQ/L Anion Gap 15 MEQ/L Estimat Glomerular Filtration Rate 64 ML/MIN Thyroid Stimulating Hormone 3rd Gen 1.210 uIU/ML Salicylates Level 3.5 MG/DL Acetaminophen Level LESS THAN 2.0 MCG/ML Ethyl Alcohol Level LESS THAN 3 MG/DL Urine Opiates Screen NEG Urine Barbiturates Screen NEG Urine Amphetamines Screen POS Urine Benzodiazepines Screen POS Urine Cocaine Screen NEG Urine Cannabinoids Screen POS Mental Status Examination Appearance: Appropriate Consciousness: Alert Orientation: x4 Motor Activity: Normal gait Speech: Unremarkable Language: Adequate Fund of Knowledge: Adequate Attention and Concentration: Adequate Memory: Unremarkable Mood: Angry Affect: Irritable Thought Process & Associations: Intact Thought Content: Appropriate Hallucination Type: None, Visual Delusion Type: Bizarre, Paranoid Suicidal Ideation: No Suicidal Plan: No Suicidal Intention: No Homicidal Ideation: No Homicidal Plan: No Homicidal Intention: No Insight: Poor Judgment: Poor Assessment & Plan Problem List: (1) Unspecified psychosis ICD Codes: F29 - Unspecified psychosis not due to a substance or known physiological condition Assessment & Plan: On psychiatric evaluation I find a patient that is agitated , restless, difficult to redirect, with a severe impairment in reality perception, acutely delusional and paranoid. The patient is fixed and widely disturbed with the idea that her car is going to be stolen by multiple people. The patient has been embedded in this delusion for about 5 days now, with difficulty sleeping at night, increasingly paranoid, not functioning, disorganized, even calling the police department now on multiple occasions. Her mother also reported the patient has been talking to herself, having visual and auditory hallucinations, and making irrational actions at home. The patient has history of bipolar disorder, borderline personality disorder, 2 previous psychiatric hospitalizations, multiple suicidal attempts, he supposed to be in olanzapine 5 mg, Valium 10 mg and Prozac 10 mg, but she has not been taking her medications for some weeks now. Symptomatology started about 5 days ago after the patient came from a trip with her boyfriend in which the patient allegedly were using ectasis, cannabis, amphetamines. Utox is +amph/thc/emely. Due to impairment in reality testing, psychosis and functionality the patient is an increased risk of danger to self and even to other she needs to be admitted in psychiatry for stabilization and safety. Substance-induced psychosis, borderline personality disorder, also a primary psychotic disorder must be carefully explored as a source of this presentation. She has a biological component of schizophrenia since her father is diagnosed with schizophrenia. Due to the level of agitation and aggressiveness presented at this moment, the patient will be medicated with Haldol 5 mg and Ativan 2 mg IM stat to be transferred to [facility] unit. We will start olanzapine 5 mg twice daily for psychosis. Assessment & Plan Estimated LOS: Jefferson Porter MD August 26, 2017 12:17
[2017-08-26 14:00] VITALS: BP 118/64; PULSE 91; RESP 18; TEMP 98.1; O2SAT 98
[2017-08-26 14:35] VITALS: BP 129/88; PULSE 97; RESP 18; TEMP 96.6; O2SAT 99
[2017-08-26] MEDS ORDERED: REMOVE OLD NICODERM (NICOTINE) PATCH T-DERMAL SCH (21:00)
[2017-08-27 06:03] VITALS: BP 145/70; PULSE 83; RESP 16; TEMP 98.2; O2SAT 98
[2017-08-27] MEDS: OLANZapine 5 MG TAB PO SCH (08:50)
[2017-08-27 08:56] LABS: BICARBONATE 29.5 MEQ/L (21.0-32.0); BLOOD UREA NITROGEN 10 MG/DL (7-18); CALCIUM 8.6 MG/DL (8.5-10.1); CHLORIDE 101 MEQ/L (98-107); CREATININE 0.87 MG/DL (0.50-1.00); GLOMERULAR FILTRATION RATE 73 ML/MIN (>89); GLUCOSE,RANDOM 107 MG/DL (74-106); SODIUM (NA) 139 MEQ/L (136-145)
[2017-08-27 08:57] LABS: CHOLESTEROL 148 MG/DL (120-200); TRIGLYCERIDES 74 MG/DL (42-150)
[2017-08-27 09:00] LABS: CHOLESTEROL/ HDL RATIO 3.95 RATIO; HDL CHOLESTEROL 37.4 MG/DL (40.0-60.0); LDL CHOLESTEROL 96 MG/DL (0-99)
[2017-08-27] MEDS: NICOTINE 21 MG/24 HR PATCH T-DERMAL SCH (09:00)
[2017-08-27] MEDS ORDERED: OLAN5TAB PO (13:00)
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
[2017-08-27] MEDS ORDERED: POTASSIUM CHLORIDE 10 MEQ CONTROLLED RELEASE TAB PO ONE (14:00)
[2017-08-27 16:38] LABS: HEMOGLOBIN A1C 5.3 % (4.3-6.0)
== END 2017-08-27 14:50 | disposition home or self-care (01) | DRG 897 ==
LOC: NEPD 00:44 → NEDA 08-26 07:41 → H270 08-26 14:30
PROVIDERS: ADMIT Psychiatry & Neurology Psychiatry; ATTEND Psychiatry & Neurology Psychiatry
DX: F19.159 Other psychoactive substance abuse with psychoactive substance-induced psychotic disorder, unspecified (principal); F31.9 Bipolar disorder, unspecified; F41.9 Anxiety disorder, unspecified; R00.0 Tachycardia, unspecified; F60.3 Borderline personality disorder; F12.90 Cannabis use, unspecified, uncomplicated; F17.210 Nicotine dependence, cigarettes, uncomplicated; Z91.5 Personal history of self-harm; Z81.8 Family history of other mental and behavioral disorders; Z97.5 Presence of (intrauterine) contraceptive device
CPT/HCPCS: 80048; 80053; 80061; 80307; 83036; 84443; 85025; 96372; J1630; J2060; Q0163

== ENCOUNTER 2017-08-29 09:46 | Emergency (ER) | payer OTHER ==
[~2017-08-29] VITALS: Ht 165.1 cm; Wt 93.8 kg
[~2017-08-29 09:46] MED LIST changes: -DIAZ10 PO; -HYDR-3580 PO; +OLAN5TAB PO
[2017-08-29 09:50] VITALS: BP 112/78; PULSE 91; RESP 16; TEMP 97.4; O2SAT 98
[2017-08-29] MEDS ORDERED: DIAZ10 PO (10:25)
[2017-08-29] MEDS ORDERED: LORA2TAB7 PO (10:25)
[2017-08-29 10:28] LABS: BILIRUBIN, URINE NEG (NEG); BLOOD, URINE NEG (NEG); GLUCOSE,URINE NEG (NEG); KETONE, URINE NEG (NEG); NITRITE,URINE NEG (NEG); URINE COLOR YELLOW (YELLW/STRAW); URINE LEUKOCYTE ESTERASE TRACE (NEG)
[2017-08-29 10:33] LABS: AMORPHOUS SEDIMENT, URINE FEW; SQUAMOUS EPITHELIAL CELL URINE 0-5 /hpf (0-5); TRICHOMONAS, URINE PRESENT; WBC, URINE 0-2 /hpf (0-5)
--- NOTE | 2017-08-29 11:23 | PD ---
HPI Chief Complaint: Abdominal Pain Time Seen by Provider: 10:09 Travel History International Travel<30 days: No Contact w/Intl Traveler<30days: No Traveled to known affect area: No History of Present Illness HPI This is a 37-year-old female with history of anxiety, who presents today with complaints of pelvic pain. Patient reports she is sexually active. She reports that she has an IUD in place. She denies any dysuria, frequency, urgency. She denies any vaginal discharge. She is concerned that she may have an STI. PFSH Past Medical History Hx Anticoagulant Therapy: No Anxiety: Yes Depression: Yes Cancer: No Cardiovascular Problems: No Chemotherapy: No Cerebrovascular Accident: No Diabetes: No Diminished Hearing: No Gastrointestinal Disorders: Yes Genitourinary: Yes Implanted Vascular Access Dvce: Yes Musculoskeletal: Yes Neurologic: Yes Reproductive: Yes (IUD IN PLACE) Respiratory: No Immunizations Current: Yes Tetanus Vaccination: > 5 Years Influenza Vaccination: No ?: Not LMP: 08/13/17 : 1 Para: 1 Miscarriage: 0 : 0 Past Surgical History Body Medical Devices: IUD-states 12 yrs Hysterectomy: No Other Surgery: Yes (Pilonidal cyst 1988) Social History Alcohol Use: Yes (occas. beer) Tobacco Use: Yes (1 pack every 2 days) Substance Use: Yes (DENIES) Allergies-Medications (Allergen,Severity, Reaction): Coded Allergies: No Known Allergies (Verified Adverse Reaction, Unknown, 08/29/17) Reported Meds & Prescriptions Reported Meds & Active Scripts Active Vistaril (Hydroxyzine Pamoate) 25 Mg Cap 25 Mg PO HS Olanzapine 5 Mg Tab 5 Mg PO Q12HR 10 Days Reported Valium (Diazepam) 10 Mg Tab 10 Mg PO DAILY PRN Lorazepam Unknown Strength Tab Unknown Dose PO HS PRN Review of Systems Except as stated in HPI: all other systems reviewed are Neg General / Constitutional: No: Fever, Chills HENT: No: Headaches, Neck Pain Cardiovascular: No: Chest Pain or Discomfort, Palpitations Respiratory: No: Cough, Shortness of Breath Gastrointestinal: No: Nausea, Vomiting Genitourinary: Positive: Pelvic Pain, No: Frequency, Dysuria, Discharge, Vaginal Bleeding Musculoskeletal: No: Weakness, Pain Skin: No Rash, No Lesions Neurologic: No: Weakness, Headache Psychiatric: Positive: Anxiety, No: Substance Abuse Physical Exam Narrative GENERAL: Well-developed malnourished female in no acute respiratory distress. SKIN: Focused skin assessment warm/dry. HEAD: Atraumatic. Normocephalic. EYES: No scleral icterus. No injection or drainage. ENT: No nasal bleeding or discharge. Mucous membranes pink and moist. NECK: Trachea midline. Supple. GASTROINTESTINAL: Abdomen soft, non-tender, nondistended. GENITOURINARY: In the presence of the nurse Patricia. Normal external genitalia without lesions or erythema. Vaginal vault with white discharge. On bimanual exam there was mild to moderate cervical motion tenderness. No adnexal masses or tenderness. MUSCULOSKELETAL: No obvious deformities. No clubbing. No cyanosis. No edema. NEUROLOGICAL: Awake and alert. No obvious cranial nerve deficits. Motor grossly within normal limits. Normal speech. Data Data Last Documented VS Vital Signs Date Time Temp Pulse Resp B/P (MAP) Pulse Ox O2 Delivery O2 Flow Rate FiO2 08/29/17 12:12 80 16 119/67 (84) 08/29/17 09:50 97.4 98 Orders Orders Urinalysis - C+S If Indicated (08/29/17 10:09) Wet Prep Profile (08/29/17 10:09) Gc And Chlamydia Pcr (08/29/17 10:09) Iv Access Insert/Monitor (08/29/17 10:09) Ed Urine Pregnancytest Poc (08/29/17 10:09) Hydroxyzine Pamoate (Vistaril) (08/29/17 10:30) Azithromycin Powd Pack (Zithromax Powd P (08/29/17 11:45) Ceftriaxone Inj (Rocephin Inj) (08/29/17 11:45) Lidocaine 1% Inj (50 Ml) (Xylocaine 1% I (08/29/17 11:45) Lidocaine Pf 1% Inj (Xylocaine-Mpf 1% In (08/29/17 11:36) Labs Laboratory Tests Test 08/29/17 10:20 08/29/17 10:50 Urine Collection Type CLEAN CATCH Urine Color YELLOW Urine Turbidity CLEAR Urine pH 6.0 Urine Specific [place] LESS/EQUAL 1.005 Urine Protein NEG mg/dL Urine Glucose (UA) NEG mg/dL Urine Ketones NEG mg/dL Urine Occult Blood NEG Urine Nitrite NEG Urine Bilirubin NEG Urine Urobilinogen 0.2 MG/DL Urine Leukocyte Esterase TRACE Urine WBC 0-2 /hpf Urine Squamous Epithelial Cells 0-5 /hpf Urine Amorphous Sediment FEW Urine Trichomonas PRESENT Microscopic Urinalysis Comment CULT NOT INDICATED Urine Collection Time 1020 Clue Cells (Wet Prep) PRESENT Vaginal Trichomonas (Wet Prep) PRESENT Vaginal Yeast (Wet Prep) NONE SEEN Chlamydia trachomatis DNA (PCR) NOT DETECTED Neisseria gonorrhoeae DNA (PCR) NOT DETECTED MDM Medical Decision Making Medical Screen Exam Complete: Yes Emergency Medical Condition: Yes Differential Diagnosis PID versus ectopic versus onset of menstrual cycle Narrative Course 37-year-old female presents today with complaints of pelvic pain. Patient was concerned she had an STI. Patient is sexually active and does not use protection. She does have an IUD in place. Patient has no urine symptoms. Urine test was negative. On pelvic examination, she had cervical motion tenderness. She has been given Rocephin 250 mg IM 1 dose and Zithromax 1 g p.o. 1 dose. She does have a history of anxiety disorder and was given Vistaril here in the emergency department. I will give her a 30 day supply of Vistaril. She is instructed to follow-up with her mental health provider. Diagnosis Primary Impression: Pelvic infection in female Additional Impression: Anxiety Additional Instructions: Follow-up with your mental health provider. Med/Other Pt SpecificInfo: Prescription(s) given Scripts Hydroxyzine Pamoate (Vistaril) 25 Mg Cap 25 MG PO HS, #30 CAP 0 Refills Prov: Zay Vickers MD 08/29/17 Disposition: 01 DISCHARGE HOME Condition: Stable Zay Vickers MD August 29, 2017 11:23
[2017-08-29] MEDS ORDERED: LIDOCAINE HCL 1% PF 30 ML VIAL ONE (11:36)
[2017-08-29] MEDS ORDERED: VIST25CA PO (11:36)
[2017-08-29] MEDS ORDERED: AZITHROMYCIN PWD FOR SUSP 1 GM PACKET PO ONE (11:45)
[2017-08-29] MEDS ORDERED: LIDOCAINE HCL 1% 50 ML VIAL IM ONE (11:45)
[2017-08-29] MEDS ORDERED: cefTRIAXone 250 MG VIAL IM ONE (11:45)
[2017-08-29 12:12] VITALS: BP 119/67
== END 2017-08-29 12:13 | disposition home or self-care (01) ==
LOC: PHED 09:46
DX: N73.9 Female pelvic inflammatory disease, unspecified (principal); F41.9 Anxiety disorder, unspecified; F32.9 Major depressive disorder, single episode, unspecified; Z97.5 Presence of (intrauterine) contraceptive device; F17.200 Nicotine dependence, unspecified, uncomplicated
CPT/HCPCS: 81001; 84703; 87210; 87491; 87591; 96372; 99284; J0696

== ENCOUNTER 2017-12-31 21:38 | Inpatient (IN) ==
[2017-12-31] MEDS ORDERED: Charcoal Activated Liq 25 GM/120 ML Bottle NG/OG ONE (21:48)
[2017-12-31] MEDS ORDERED: DEXTROSE 5% IV.SIG ONE ×4 (22:02)
[2017-12-31] MEDS ORDERED: WATER IV.SIG ONE ×4 (22:02)
[2017-12-31] MEDS ORDERED: ACETYLCYSTEINE IV.SIG ONE ×4 (22:02)
[2017-12-31] MEDS ORDERED: Propofol Inj 500 MG/50 ML Vial IV.PUSH ONE (22:10)
[2017-12-31] MEDS: Propofol 1000 mg/100 ml Inj 1,000 MG/100 ML BOTTLE IV.CONT PRN (22:13)
[2017-12-31 22:16] LABS: Baso # (Auto) 0.1 th/mm3 (0.0-0.2); Baso % (Auto) 0.4 % (0.0-2.0); Eos # (Auto) 0.2 th/mm3 (0.0-0.4); Eos % (Auto) 1.6 % (0.0-4.0); Hematocrit 37.4 % (35.0-46.0); Hemoglobin 12.2 gm/dL (11.6-15.3); Lymph % (Auto) 32.4 % (9.0-44.0); Mean Corpuscular HGB Conc 32.7 % (32.0-36.0); Mean Corpuscular Volume 82.6 fL (80.0-100.0); Mono % (Auto) 8.2 % (0.0-8.0); Neut # (Auto) 7.2 th/mm3 (1.8-7.7); Neut % (Auto) 57.4 % (16.0-70.0); Platelet Count 358 th/mm3 (150-450); Red Blood Count 4.53 mil/mm3 (4.00-5.30); Red Cell Distribution Width 14.7 % (11.6-17.2); White Blood Count 12.5 th/mm3 (4.0-11.0)
--- NOTE | 2017-12-31 22:16 | XR ---
EXAM DATE: 12/31/2017 10:14 PM EDT AGE/SEX: 37 years / Female INDICATIONS: NG tube placement. CLINICAL DATA: This is the patient's initial encounter. Patient reports that signs and symptoms have been present for 1 day and indicates a pain score of Nonresponsive. MEDICAL/SURGICAL HISTORY: None. None. COMPARISON: No prior exams available for comparison. FINDINGS: Examination of the abdomen demonstrates a normal bowel gas pattern. No free air is identified. No o rganomegaly is evident. Osseous structures are intact. There is a nasogastric tube with tip in the upper stomach, sidehole near the GE junction. Nondistende d stomach. CONCLUSION: Nasogastric tube tip is in the upper stomach, sidehole near the GE junction. Electronically signed by: Chad Carty MD 12/31/2017 10:15 PM EDT
--- NOTE | 2017-12-31 22:18 | XR ---
EXAM DATE: 12/31/2017 10:15 PM EDT AGE/SEX: 37 years / Female INDICATIONS: Post intubation. CLINICAL DATA: This is the patient's initial encounter. Patient reports that signs and symptoms have been present for 1 day and indicates a pain score of Nonresponsive. MEDICAL/SURGICAL HISTORY: None. None. COMPARISON: [facility], CHEST SINGLE AP, 06/13/2016. . FINDINGS: Patient is now intubated. Endotracheal tube tip is approximately 3 cm above the anant. No infiltrate demonstrated. No pleural effusion or pneumothorax. There is a nasogastric tube with tip in the upper stomach. CONCLUSION: Clear lungs. Endotracheal tube tip approximately 3 cm above the anant. Electronically signed by: Chad Carty MD 12/31/2017 10:17 PM EDT
[2017-12-31 22:28] LABS: ABG Base Excess -2.1 mmol/L (-2-2); ABG PCO2 47 mmHg (38-42); ABG PO2 498 mmHg (61-120)
[2017-12-31 22:32] LABS: Albumin 3.9 g/dL (3.4-5.0); Anion Gap 9 meq/L (5-15); Aspartate Aminotransferase 26 U/L (15-37); Blood Urea Nitrogen 14 mg/dL (7-18); Calcium 8.9 mg/dL (8.5-10.1); Carbon Dioxide 24.1 meq/L (21.0-32.0); Chloride 109 meq/L (98-107); Glomerular Filtration Rate 50 mL/min (>89); Glucose,Random 102 mg/dL (74-106); Potassium 3.8 meq/L (3.5-5.1); Sodium 142 meq/L (136-145)
[2017-12-31 22:33] LABS: Alanine Aminotransferase 25 U/L (10-53)
[2017-12-31 22:37] LABS: Alkaline Phosphatase 113 U/L (45-117); Total Protein 7.9 g/dL (6.4-8.2)
[2017-12-31] MEDS ORDERED: Sod Chloride 0.9% Inj 3,000 ML IV.SIG ONE (22:45)
[2017-12-31 22:49] LABS: Lipase 117 U/L (73-393)
[2017-12-31 23:13] LABS: Activated Partial Thrombo Time 26.4 sec (24.3-30.1); Prothrombin Time 10.1 sec (9.8-11.6)
[2017-12-31] MEDS ORDERED: Heparin - SQ 10,000 UNITS/ML Vial SQ SCH (23:45)
[2017-12-31] MEDS ORDERED: Bisacodyl 10 MG Supp RECTAL PRN (23:51)
--- NOTE | 2017-12-31 23:51 | P.HPCC ---
History of Present Illness Primary Care Physician: No Primary Care Physician History of Present Illness: 37-year-old female presents as intentional overdose with possibly Tylenol/ hydrocodone and baclofen. The empty bottles of medications were found next to the patient was extremely lethargic and unable to protect and airways and was intubated by EMS at the scene. No other information is available at this time since the patient is endotracheally intubated. Review of Systems unobtainable due to endotracheal tube PMFSH - History History Provided By: Equal Employment Opportunity Officer / EMT - Medical / Surgical Hx Neg / Unobtainable Medical Problems Denied: Unable to Obtain Surgical History: Unable to Obtain - Social History I have reviewed the patient's Social History: No - Tobacco History Smoking Status: Unknown if ever smoked - Alcohol History How Often Do You Have a Drink Containing Alcohol: Unable to Obtain - Substance Use History Substance History: Unable to Obtain - Travel History Recent Travel in the [facility] Within the Last 8 Weeks: No Recent Travel Out of the Country Within the Last 8 Weeks: No - Immunization History Tetanus Immunization: Unsure Hx Influenza Vaccine This Season: Unable to Assess Medications and Allergies Active Medications: Active Medications Propofol (Diprivan 1000 Mg/100 Ml Inj) 1,000 mg in 100 mls @ 2.55 mls/hr IV.CONT TITRATE PRN; Protocol PRN Reason: Per Protocol Last Titration: 12/31/17 22:51 Dose: 30 mcg/kg/min, 15.3 mls/hr Sodium Chloride (Ns Inj) 1,000 mls @ 250 mls/hr IV.CONT .Q4H CATHY Allergies Allergy/AdvReac Type Severity Reaction Status Date / Time No Known Allergies AdvReac Unknown Uncoded 08/29/17 10:17 Home Medications Medication Instructions Recorded Confirmed Type oxycodone-acetaminophen 90 tab PO Q6H PRN 01/01/18 01/01/18 History Results - Labs CBC & Chem 7: 01/01/18 03:59 01/01/18 03:59 Labs: Short CBC 12/31/17 Range/Units 21:50 WBC 12.5 H (4.0-11.0) th/mm3 Hgb 12.2 (11.6-15.3) gm/dL Hct 37.4 (35.0-46.0) % Plt Count 358 (150-450) th/mm3 BMP 12/31/17 21:50 Sodium 142 Potassium 3.8 Chloride 109 H Carbon Dioxide 24.1 BUN 14 Creatinine 1.21 H Calcium 8.9 Cardiac Enzymes 12/31/17 Range/Units 21:50 Troponin I Less than 0.02 L (0.02-0.05) ng/mL Liver Function 12/31/17 Range/Units 21:50 Total Bilirubin 0.3 (0.2-1.0) mg/dL AST 26 (15-37) U/L ALT 25 (10-53) U/L Alkaline Phosphatase 113 (45-117) U/L Albumin 3.9 (3.4-5.0) g/dL - Imaging Impressions Abdomen X-Ray 12/31/17 21:51 CONCLUSION: Nasogastric tube tip is in the upper stomach, sidehole near the GE junction. Chest X-Ray 12/31/17 21:51 CONCLUSION: Clear lungs. Endotracheal tube tip approximately 3 cm above the anant. Exam Vital signs: Vital Signs 12/31/17 21:45 12/31/17 21:48 12/31/17 21:55 Temperature 98.3 F Pulse Rate 86 70 Respiratory Rate 14 20 Blood Pressure 176/83 H Pulse Oximetry 100 100 100 Intake & Output 12/31/17 12/31/17 01/01/18 06:59 18:59 06:59 Intake Total 522 / 522 Balance 522 / 522 Weight 85 kg Intake: IV 522 / 522 Acetadote Inj 4,250 MG In D5W 522 / 522 Inj 500 ML @ 130.313 mls/hr IV. SIG ONCE ONE Rx#:[id number] - Constitutional moderate distress - Routine HEENT Exam Head: Present: normocephalic, atraumatic Eye: Present: PERRL ENT: Present: mucous membranes moist - Routine Neck Exam Present: supple. Absent: JVD, carotid bruit - Routine Respiratory Exam Present: patient mechanically ventilated. Absent: accessory muscle use, rhonchi , stridor, wheezes - Routine Cardiovascular Exam Present: RRR, S1, S2 - Routine Abdominal Exam Present: soft, normoactive bowel sounds. Absent: tenderness, distended, rebound - Routine Extremities Exam Absent: cyanosis, clubbing, edema - Routine Skin Exam Present: intact. Absent: cyanosis, erythema - Routine Neurological Exam Present: moving all extremities Caprini VTE Risk Assessment Caprini VTE Risk Assessment: Moderate/High Risk (score >= 2) Caprini Risk Assessment Model: Point Value = 1 Point Value = 2 Point Value = 3 Point Value = 5 Age 41-60 Minor surgery BMI > 25 kg/m2 Swollen legs Varicose veins or History of unexplained or recurrent spontaneous Oral contraceptives or hormone replacement Sepsis (< 1 month) Serious lung disease, including pneumonia (< 1 month) Abnormal pulmonary function Acute myocardial infarction Congestive heart failure (< 1 month) History of inflammatory bowel disease Medical patient at bed rest Age 61-74 Arthroscopic surgery Major open surgery (> 45 min) Laparoscopic surgery (> 45 min) Malignancy Confined to bed (> 72 hours) Immobilizing plaster cast Central venous access Age >= 75 History of VTE Family history of VTE Factor V Leiden Prothrombin [id number] Lupus anticoagulant Anticardiolipin antibodies Elevated serum homocysteine Heparin-induced thrombocytopenia Other congenital or acquired thrombophilia Stroke (< 1 month) Elective arthroplasty Hip, pelvis, or leg fracture Acute spinal cord injury (< 1 month) Prophylaxis Regimen: Total Risk Factor Score Risk Level Prophylaxis Regimen 0-1 Low Early ambulation 2 Moderate Order ONE of the following: *Sequential Compression Device (SCD) *Heparin 5000 units SQ BID 3-4 Higher Order ONE of the following medications: *Heparin 5000 units SQ TID *Enoxaparin/Lovenox 40 mg SQ daily (WT < 150 kg, CrCl > 30 mL/min) *Enoxaparin/Lovenox 30 mg SQ daily (WT < 150 kg, CrCl > 10-29 mL/min) *Enoxaparin/Lovenox 30 mg SQ BID (WT < 150 kg, CrCl > 30 mL/min) AND/OR *Sequential Compression Device (SCD) 5 or more Highest Order ONE of the following medications: *Heparin 5000 units SQ TID (Preferred with Epidurals) *Enoxaparin/Lovenox 40 mg SQ daily (WT < 150 kg, CrCl > 30 mL/min) *Enoxaparin/Lovenox 30 mg SQ daily (WT < 150 kg, CrCl > 10-29 mL/min) *Enoxaparin/Lovenox 30 mg SQ BID (WT < 150 kg, CrCl > 30 mL/min) AND *Sequential Compression Device (SCD) Assessment and Plan - Assessment and Plan Plan: Respiratory failure -Intubated for an airway protection -No weaning until neurologically improved -Vent bundle -DuoNeb's as needed Overdose -Tylenol ? -Tylenol level in the emergency department - 3 -Mucomyst initiated in the ED, will monitor Tylenol trend -oxycodone/baclofen -Supportive care -Psychiatry evaluation when extubated Altered mental status -Due to above -Supportive care Hypernatremia -Dehydration -Aggressive IV fluid resuscitation DVT GI prophylaxis -Teds SCDs -Lovenox -Pepcid 35 minutes of critical care
[2018-01-01 01:06] LABS: Bilirubin,Urine Negative (Negative); Clarity,Urine Clear (Clear); Color,Urine Colorless (Yellw/Straw); Glucose,Urine (UA) 50 mg/dL (Negative); Leukocyte Esterase,Urine Negative (Negative); Nitrite,Urine Negative (Negative); Specific Gravity,Urine 1.003 (1.002-1.035)
[2018-01-01 01:13] LABS: Amphetamine Screen,Urine Neg (Neg); Barbiturate Screen,Urine Neg (Neg); Cannabinoid Screen,Urine Neg (Neg); Cocaine Screen,Urine Neg (Neg)
[2018-01-01 01:14] LABS: Opiate Screen,Urine Neg (Neg)
[2018-01-01] MEDS: Oral Hygiene Kit OROPHARYNG SCH ×5 (01:37→23:50)
[2018-01-01] MEDS: Heparin - SQ 10,000 UNITS/ML Vial SQ SCH ×4 (03:13→23:50)
[2018-01-01] MEDS: Chlorhexidine Gluconate 2% 1 Pack (2 Cloths) TOPICAL SCH (03:48)
[2018-01-01] MEDS: Sod Chloride 0.9% Inj 1,000 ML IV.CONT SCH ×4 (03:48→16:30)
[2018-01-01] MEDS: Propofol 1000 mg/100 ml Inj 1,000 MG/100 ML BOTTLE IV.CONT PRN ×3 (03:48→22:43)
[2018-01-01] MEDS ORDERED: Chlorhexidine Gluconate 2% 1 Pack (2 Cloths) TOPICAL PRN (04:00)
[2018-01-01 04:35] LABS: INR 1.1 Ratio; Prothrombin Time 10.9 sec (9.8-11.6)
[2018-01-01 04:39] LABS: Baso # (Auto) 0.1 th/mm3 (0.0-0.2); Baso % (Auto) 0.6 % (0.0-2.0); Eos # (Auto) 0.2 th/mm3 (0.0-0.4); Eos % (Auto) 1.7 % (0.0-4.0); Hematocrit 38.9 % (35.0-46.0); Hemoglobin 12.7 gm/dL (11.6-15.3); Lymph # (Auto) 2.8 th/mm3 (1.0-4.8); Lymph % (Auto) 29.2 % (9.0-44.0); Mean Corpuscular HGB Conc 32.7 % (32.0-36.0); Mean Corpuscular Hemoglobin 27.1 pg (27.0-34.0); Mean Corpuscular Volume 82.9 fL (80.0-100.0); Mean Platelet Volume 8.3 fL (7.0-11.0); Mono # (Auto) 0.8 th/mm3 (0.0-0.9); Mono % (Auto) 8.7 % (0.0-8.0); Neut # (Auto) 5.7 th/mm3 (1.8-7.7); Neut % (Auto) 59.8 % (16.0-70.0); Platelet Count 301 th/mm3 (150-450); Red Blood Count 4.69 mil/mm3 (4.00-5.30); Red Cell Distribution Width 15.3 % (11.6-17.2); White Blood Count 9.6 th/mm3 (4.0-11.0)
[2018-01-01 04:48] LABS: Alanine Aminotransferase 29 U/L (10-53); Albumin 3.1 g/dL (3.4-5.0); Alkaline Phosphatase 92 U/L (45-117); Anion Gap 8 meq/L (5-15); Aspartate Aminotransferase 23 U/L (15-37); Blood Urea Nitrogen 12 mg/dL (7-18); Calcium 7.6 mg/dL (8.5-10.1); Carbon Dioxide 24.3 meq/L (21.0-32.0); Chloride 119 meq/L (98-107); Glomerular Filtration Rate 74 mL/min (>89); Glucose,Random 124 mg/dL (74-106); Magnesium 2.2 mg/dL (1.5-2.5); Potassium 4.4 meq/L (3.5-5.1); Sodium 151 meq/L (136-145); Total Protein 6.8 g/dL (6.4-8.2)
[2018-01-01 05:39] LABS: Platelet Estimate Normal (Normal); Platelet Morphology Normal (Normal)
[2018-01-01] MEDS: Famotidine PF Inj 20 MG/2 ML Vial IV.PUSH SCH ×2 (08:18→20:08)
[2018-01-01] MEDS: Chlorhexidine 0.12% Oral Kit 15 ML UDC OROPHARYNG SCH ×2 (08:21→19:35)
[2018-01-01] MEDS: Senna/Docusate Sodium 8.6/50 MG Tablet PO SCH ×2 (08:22→20:08)
[2018-01-01] MEDS ORDERED: Dextrose 50% in Water 50 ML Vial IV.PUSH PRN (08:26)
--- NOTE | 2018-01-01 08:54 | P.PNCC ---
Subjective Subjective Remarks/Hospital Course: Hospital Course: 37-year-old female presents as intentional overdose with possibly Tylenol/ hydrocodone and baclofen. The empty bottles of medications were found next to the patient was extremely lethargic and unable to protect and airways and was intubated by EMS at the scene. No other information is available at this time since the patient is endotracheally intubated. Subjective: 01/01: remains encephalopathic. tylenol level still rising, although still only 9. sending repeat level now. discussed again with poison control: if level downtrending and 1400 labs negative, would be clear from a tox standpoint. remains intubated. Objective Vital Signs / I&O: Vital Signs 12/31/17 21:45 12/31/17 21:48 12/31/17 21:55 Temperature 36.8 C Pulse Rate 86 70 Respiratory Rate 14 20 Blood Pressure 176/83 H Pulse Oximetry 100 100 100 12/31/17 22:00 12/31/17 22:15 12/31/17 22:30 Temperature Pulse Rate 70 74 72 Respiratory Rate Blood Pressure 192/91 H 192/95 H 179/89 H Pulse Oximetry 96 100 100 12/31/17 22:45 12/31/17 23:00 12/31/17 23:15 Temperature Pulse Rate 70 68 68 Respiratory Rate Blood Pressure 181/90 H 178/84 H 187/88 H Pulse Oximetry 100 100 100 12/31/17 23:30 12/31/17 23:45 12/31/17 23:56 Temperature Pulse Rate 68 68 Respiratory Rate 14 Blood Pressure 189/99 H 196/85 H Pulse Oximetry 100 100 100 01/01/18 00:00 01/01/18 00:45 01/01/18 01:10 Temperature Pulse Rate 68 68 67 Respiratory Rate 20 Blood Pressure 186/91 H 177/88 H Pulse Oximetry 100 100 100 01/01/18 01:13 01/01/18 02:00 01/01/18 03:00 Temperature 36.8 C Pulse Rate 64 64 62 Respiratory Rate 17 17 17 Blood Pressure 194/91 H 143/80 H 154/90 H Pulse Oximetry 100 100 100 01/01/18 04:00 01/01/18 05:00 01/01/18 05:01 Temperature 36.6 C Pulse Rate 63 63 63 Respiratory Rate 16 17 17 Blood Pressure 174/89 H 191/94 H Pulse Oximetry 100 100 100 01/01/18 05:02 01/01/18 05:23 01/01/18 06:00 Temperature Pulse Rate 62 63 63 Respiratory Rate 16 17 16 Blood Pressure 187/91 H 170/84 H 170/83 H Pulse Oximetry 100 100 100 01/01/18 07:00 Temperature Pulse Rate Respiratory Rate 15 Blood Pressure Pulse Oximetry 100 Intake & Output 12/31/17 01/01/18 01/01/18 18:59 06:59 18:59 Intake Total 3785.75 / 3785.75 Output Total 4000 / 4000 Balance -214.25 / -214.25 Weight 105.233 kg Intake: IV 3785.75 / 3785.75 Acetadote Inj 12,750 MG In D5W 263.75 / 263.75 Inj 200 ML @ 263.75 mls/hr IV. SIG ONCE ONE Rx#:[id number] Acetadote Inj 4,250 MG In D5W 522 / 522 Inj 500 ML @ 130.313 mls/hr IV. SIG ONCE ONE Rx#:[id number] NS Inj 3,000 ML @ Wide Open IV. 3000 / 3000 SIG BOLUS ONE Rx#:[id number] Output: Urine 4000 / 4000 Other: Weight On Admission 105.5 kg Result Diagrams: 01/01/18 03:59 01/01/18 03:59 Objective Remarks: gen: young female, lying in bed, intubated, sedated heent: nc. at. pupils 2mm, equal, reactive, conjugate. mmm. neck: no jvd. trachea midline. chest: intubated with 7.5 ett. equal chest rise. prvc mode ventilation. peep 5, fio2 40%. spo2 100%. cv: normal rate, regular rhythm. sinus by tele. abd: obese, soft, nontender, nondistended. no guarding. extr: no edema. distal pulses 2+. neuro: RASS -4. weakly withdraws to pain. sedated with propofol. moves all extremities. does not follow commands. +cough. Assessment and Plan - Assessment and Plan Plan: Assessment: 37yF s/p intentional overdose with tylenol, baclofen. clinically remains critically ill with respiratory failure and toxic encephalopathy. Acute hypoxic and hypercarbic Respiratory failure -No weaning until neurologically improved -Vent bundle -DuoNeb's as needed - hob elevated - wean fio2 for goal spo2 > 90% Acetaminophen and Baclofen Intentional Overdose -Tylenol ? -Tylenol level in the emergency department - 3-->9. - resend tylenol level - check coags, cmp @ 1400 - if downtrending, can be toxicologically cleared. - 2 doses of [id number] in ER, and then stopped. no need to continue unless tylenol level continues to uptrend or LFTs spike. -oxycodone/baclofen -Supportive care -Psychiatry evaluation when extubated - daily cmp, mg, phos, cbc, coag. Toxic Encephalopathy -Due to above -Supportive care - frequent neuro checks - avoid long-acting sedatives Benzodiazepine dependence - watch for withdraw symptoms Acute kidney injury- improving - secondary to dehydration and overdose - continue mivf @ 250cc/hr - watch uop - no indication for huff catheter at this time: will remove. - daily bmp Hypernatremia- worsening. -Dehydration -Aggressive IV fluid resuscitation - change to LR for mivf - start free water 200mL po q4h - ICU electrolye protocol. Acute protein calorie malnutrition- moderate - start tube feeds if mental status does not improve today. DVT GI prophylaxis -Teds SCDs -Lovenox -Pepcid Critical care time: 32 minutes, exclusive of separately billable procedures. time included evaluation of the patient, discussion with poison control, re- evaluation of laboratory and clinical data, monitoring of respiratory and mental status, making ventilator changes and assessments.
[2018-01-01 13:59] LABS: Prothrombin Time 10.3 sec (9.8-11.6)
[2018-01-01 14:24] LABS: Alanine Aminotransferase 20 U/L (10-53); Albumin 3.3 g/dL (3.4-5.0); Anion Gap 6 meq/L (5-15); Aspartate Aminotransferase 19 U/L (15-37); Blood Urea Nitrogen 9 mg/dL (7-18); Calcium 7.6 mg/dL (8.5-10.1); Carbon Dioxide 25.4 meq/L (21.0-32.0); Chloride 116 meq/L (98-107); Glomerular Filtration Rate Greater Than 89 mL/min (>89); Glucose,Random 115 mg/dL (74-106); Potassium 3.7 meq/L (3.5-5.1); Sodium 147 meq/L (136-145)
[2018-01-01 14:27] LABS: Alkaline Phosphatase 101 U/L (45-117); Total Protein 6.9 g/dL (6.4-8.2)
[2018-01-01] MEDS: Insulin NovoLIN Regular Correctional Sugar Inj SQ SCH ×4 (14:49→23:50)
[2018-01-02] MEDS ORDERED: Labetalol HCl Inj 100 MG/20 ML Vial IV.PUSH PRN (01:01)
[2018-01-02] MEDS ORDERED: Chlorhexidine Gluconate 2% 1 Pack (2 Cloths) TOPICAL PRN (04:00)
[2018-01-02] MEDS ORDERED: Chlorhexidine Gluconate 2% 1 Pack (2 Cloths) TOPICAL SCH (04:00)
[2018-01-02] MEDS: Oral Hygiene Kit OROPHARYNG SCH (05:28)
[2018-01-02] MEDS: Chlorhexidine Gluconate 2% 1 Pack (2 Cloths) TOPICAL SCH (05:28)
[2018-01-02] MEDS: Insulin NovoLIN Regular Correctional Sugar Inj SQ SCH ×2 (05:28→15:06)
[2018-01-02 08:21] LABS: Hematocrit 35.2 % (35.0-46.0); Hemoglobin 11.1 gm/dL (11.6-15.3); Mean Corpuscular HGB Conc 31.5 % (32.0-36.0); Mean Corpuscular Hemoglobin 26.3 pg (27.0-34.0); Mean Corpuscular Volume 83.5 fL (80.0-100.0); Platelet Count 278 th/mm3 (150-450); Red Blood Count 4.21 mil/mm3 (4.00-5.30); Red Cell Distribution Width 15.1 % (11.6-17.2)
[2018-01-02 08:24] LABS: INR 1.1 Ratio; Prothrombin Time 11.3 sec (9.8-11.6)
[2018-01-02 08:43] LABS: Alanine Aminotransferase 21 U/L (10-53); Alkaline Phosphatase 96 U/L (45-117); Aspartate Aminotransferase 31 U/L (15-37); Blood Urea Nitrogen 4 mg/dL (7-18); Calcium 8.5 mg/dL (8.5-10.1); Carbon Dioxide 21.7 meq/L (21.0-32.0); Glomerular Filtration Rate Greater Than 89 mL/min (>89); Glucose,Random 95 mg/dL (74-106); Magnesium 1.8 mg/dL (1.5-2.5); Phosphorus 1.7 mg/dL (2.5-4.9); Total Protein 6.7 g/dL (6.4-8.2)
[2018-01-02] MEDS: Heparin - SQ 10,000 UNITS/ML Vial SQ SCH ×3 (08:53→23:23)
[2018-01-02] MEDS: Famotidine PF Inj 20 MG/2 ML Vial IV.PUSH SCH (08:54)
[2018-01-02] MEDS: Chlorhexidine 0.12% Oral Kit 15 ML UDC OROPHARYNG SCH (08:54)
[2018-01-02] MEDS: Senna/Docusate Sodium 8.6/50 MG Tablet PO SCH (08:54)
[2018-01-02 09:04] LABS: Anion Gap 10 meq/L (5-15); Chloride 111 meq/L (98-107); Sodium 143 meq/L (136-145)
--- NOTE | 2018-01-02 10:47 | P.PNCC ---
Subjective Subjective Remarks/Hospital Course: Hospital Course: 37-year-old female presents as intentional overdose with possibly Tylenol/ hydrocodone and baclofen. The empty bottles of medications were found next to the patient was extremely lethargic and unable to protect and airways and was intubated by EMS at the scene. No other information is available at this time since the patient is endotracheally intubated. Subjective: 01/01: remains encephalopathic. tylenol level still rising, although still only 9. sending repeat level now. discussed again with poison control: if level downtrending and 1400 labs negative, would be clear from a tox standpoint. remains intubated. 01/02: successfully extubated overnight. doing well on room air. medically cleared from a tox standpoint. ready for psych eval. can go to med psych floor or regular psych floor. Objective Vital Signs / I&O: Vital Signs 01/01/18 11:00 01/01/18 12:00 01/01/18 14:00 Temperature 36.6 C Pulse Rate 87 71 76 Respiratory Rate 22 17 Blood Pressure 227/107 H 182/96 H Pulse Oximetry 100 100 01/01/18 14:20 01/01/18 16:00 01/01/18 17:00 Temperature 36.6 C Pulse Rate 96 H 86 Respiratory Rate 11 L 40 H 26 H Blood Pressure 145/86 H 183/106 H Pulse Oximetry 100 100 100 01/01/18 17:12 01/01/18 17:34 01/01/18 18:00 Temperature Pulse Rate 73 72 Respiratory Rate 20 17 14 Blood Pressure 145/86 H 154/76 H Pulse Oximetry 99 100 100 01/01/18 19:00 01/01/18 19:20 01/01/18 20:00 Temperature 37.1 C Pulse Rate 68 67 Respiratory Rate 24 17 20 Blood Pressure 147/74 H 174/99 H Pulse Oximetry 100 100 100 01/01/18 21:00 01/01/18 22:00 01/01/18 23:00 Temperature Pulse Rate 68 79 71 Respiratory Rate 16 20 17 Blood Pressure 185/96 H 171/96 H 180/95 H Pulse Oximetry 100 100 100 01/01/18 23:44 01/02/18 00:00 01/02/18 00:02 Temperature 37.3 C Pulse Rate 75 79 Respiratory Rate 16 21 18 Blood Pressure 173/100 H 181/103 H Pulse Oximetry 100 100 100 01/02/18 00:04 01/02/18 00:15 01/02/18 00:30 Temperature Pulse Rate 76 74 79 Respiratory Rate 17 17 19 Blood Pressure 179/108 H 184/112 H 185/109 H Pulse Oximetry 100 100 100 01/02/18 00:45 01/02/18 01:00 01/02/18 01:15 Temperature Pulse Rate 74 75 81 Respiratory Rate 18 18 21 Blood Pressure 178/110 H 181/108 H 159/104 H Pulse Oximetry 100 100 100 01/02/18 01:30 01/02/18 01:46 01/02/18 01:55 Temperature Pulse Rate 71 82 79 Respiratory Rate 18 22 18 Blood Pressure 157/98 H 169/109 H 173/104 H Pulse Oximetry 100 100 100 01/02/18 02:00 01/02/18 02:15 01/02/18 02:30 Temperature Pulse Rate 71 71 70 Respiratory Rate 19 18 17 Blood Pressure 175/104 H 179/101 H 179/100 H Pulse Oximetry 100 100 100 01/02/18 02:45 01/02/18 03:00 01/02/18 03:15 Temperature Pulse Rate 72 77 75 Respiratory Rate 16 18 21 Blood Pressure 173/94 H 161/95 H 170/101 H Pulse Oximetry 100 100 100 01/02/18 03:30 01/02/18 03:53 01/02/18 04:00 Temperature 37.0 C Pulse Rate 74 72 77 Respiratory Rate 21 20 21 Blood Pressure 170/98 H 163/95 H 164/97 H Pulse Oximetry 100 100 100 01/02/18 06:00 Temperature Pulse Rate 81 Respiratory Rate Blood Pressure Pulse Oximetry Intake & Output 01/01/18 01/02/18 01/02/18 18:59 06:59 18:59 Intake Total 1100 / 1100 100 / 100 Output Total 600 / 600 2000 / 1999 Balance 500 / 500 -1900 / -1900 Weight 108 kg Intake: IV 1100 / 1100 100 / 100 Diprivan 1000 mg/100 ml Inj 1, 100 / 100 100 / 100 000 mg In 100 ml @ 5 MCG/KG/MIN 2.55 mls/hr IV.CONT TITRATE PRN Rx#:[id number] NS Inj 1,000 ML @ 184 mls/hr IV 1000 / 1000 .CONT .Q5H27M CATHY Rx#:[id number] Output: Urine 1999 / 1999 Urine Amount (Catheter) 600 / 600 Indwelling Urethral Catheter 600 / 600 Other: # Bowel Movements 0 Result Diagrams: 01/02/18 07:32 01/02/18 07:32 Objective Remarks: gen: young female, lying in bed, awake, alert, no acute distress. heent: nc. at. pupils 2mm, equal, reactive, conjugate. mmm. neck: no jvd. trachea midline. chest: equal chest rise. room air. unlabored. cv: normal rate, regular rhythm. sinus by tele. abd: obese, soft, nontender, nondistended. no guarding. extr: no edema. distal pulses 2+. neuro: RASS 0. no focal deficits. Assessment and Plan - Assessment and Plan Plan: Assessment: 37yF s/p intentional overdose with tylenol, baclofen. now extubated and medically cleared. [facility]. consult psychiatry. transfer out of ICU. Acute hypoxic and hypercarbic Respiratory failure- resolved. -room air - prn nebs - oob prn. Acetaminophen and Baclofen Intentional Overdose - medically cleared - psych consult. Toxic Encephalopathy- resolved -Due to above -Supportive care Benzodiazepine dependence - watch for withdraw symptoms Acute kidney injury- resolved - strict i/o's Hypernatremia- improving. -Dehydration -encourage PO fluid hydration - ICU electrolye protocol. Acute protein calorie malnutrition- moderate - bedside swallow eval and advance diet. DVT GI prophylaxis -Teds SCDs -Lovenox -Pepcid dispo: transfer to psych. out of ICU.
[2018-01-02] MEDS ORDERED: LORazepam 1 MG Tablet PO PRN (13:20)
[2018-01-02] MEDS ORDERED: Haloperidol Inj 5 MG/ML Ampul IV.PUSH PRN (13:20)
[2018-01-02] MEDS: Haloperidol Inj 5 MG/ML Ampul IV.PUSH PRN (20:30)
--- NOTE | 2018-01-02 22:38 | ECG ---
Date Performed: 12/31/2017 Time Performed: 21:44:12 PTAGE: 37 years EKG: Sinus rhythm WITH SINUS ARRHYTHMIA INCOMPLETE RIGHT BUNDLE BRANCH BLOCK BORDERLINE ECG PREVIOUS TRACING : 06/21/2017 11.24 DOCTOR: Amparo Barker Interpretating Date/Time 01/02/2018 22:28:48
[2018-01-03] MEDS: Chlorhexidine Gluconate 2% 1 Pack (2 Cloths) TOPICAL SCH (04:09)
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
[2018-01-03] MEDS: Potassium Phos/Sodium Phos 250 MG Tablet PO SCH ×4 (08:11→20:11)
[2018-01-03] MEDS: Heparin - SQ 10,000 UNITS/ML Vial SQ SCH ×3 (08:12→23:24)
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
[2018-01-03] MEDS: Haloperidol Inj 5 MG/ML Ampul IV.PUSH PRN (09:10)
[2018-01-03] MEDS ORDERED: Haloperidol Inj 5 MG/ML Ampul IV.PUSH PRN (11:15)
[2018-01-03] MEDS: LORazepam 1 MG Tablet PO PRN ×3 (12:20→20:11)
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
[2018-01-04] MEDS ORDERED: ALPRAZolam 0.25 MG Tablet PO ONE (05:08)
[2018-01-04] MEDS: Chlorhexidine Gluconate 2% 1 Pack (2 Cloths) TOPICAL SCH (05:15)
[2018-01-04] MEDS: Haloperidol Inj 5 MG/ML Ampul IV.PUSH PRN (06:19)
--- NOTE | 2018-01-04 07:29 | P.PN ---
Subjective Interval history: Follow-up on patient with Percocet and Baclofen overdose. Patient seen and examined. Patient tells me today that she has been taking Klonopin (unknown dose) 3 times a day for the past several months. She denies any history of seizures. She states she feels okay today. She denies any dizziness, headache , fever, chills, chest pain, shortness of breath, nausea, vomiting or abdominal pain. She is asking for something for anxiety. Physical Exam Vital signs: Vital Signs 01/03/18 08:00 01/03/18 12:00 01/03/18 16:00 Temperature 97.5 F L 98.7 F 98.1 F Pulse Rate 78 94 H 76 Respiratory Rate 20 18 18 Blood Pressure 136/79 156/100 H 149/96 H Pulse Oximetry 98 99 100 01/03/18 20:00 01/04/18 00:00 01/04/18 00:30 Temperature 98.0 F 97.9 F Pulse Rate 98 H 66 66 Respiratory Rate 18 18 Blood Pressure 150/92 H 148/86 H Pulse Oximetry 99 96 01/04/18 02:43 01/04/18 04:00 Temperature 98.1 F Pulse Rate 75 Respiratory Rate 18 18 Blood Pressure 151/88 H Pulse Oximetry 98 Intake & Output 01/03/18 01/04/18 01/04/18 18:59 06:59 18:59 Output Total 1999 Balance -1999 -1999 Weight 117.9 kg Output: Urine 1999 Other: # Voids 2 1 Date of Last Bowel Movement 01/03/18 01/03/18 # Bowel Movements 0 Narrative: GENERAL: WDWN obese female patient, INAD. Awake and alert. Sitting in bedside chair. SKIN: Warm and dry. HEENT: Atraumatic. Normocephalic. Pupils equal and round. No scleral icterus. No injection or drainage. No nasal bleeding or discharge. Mucous membranes pink and moist. NECK: Trachea midline. CARDIOVASCULAR: Regular rate and rhythm. RESPIRATORY: No accessory muscle use. Clear to auscultation. Breath sounds equal bilaterally. GASTROINTESTINAL: Abdomen soft, non-tender, nondistended. MUSCULOSKELETAL: Extremities without clubbing, cyanosis, or edema. No obvious deformities. NEUROLOGICAL: Awake and alert. No obvious cranial nerve deficits. Motor grossly within normal limits. Able to move all extremities spontaneously. Normal speech. PSYCHIATRIC: Flat affect. Judgment and insight is poor - Urinary Catheter Management Indwelling Urethral Catheter Cath placed during this visit: yes, but has since been removed by the nurse Reason for continuing: Hourly intake/output Insertion date: 12/31/17 Insertion time: 22:12 Removal date: 01/01/18 Removal time: 08:52 Results - Labs CBC & Chem 7: 01/02/18 07:32 01/02/18 07:32 - Procedures None Assessment and Plan - Assessment (1) Acute respiratory failure with hypercapnia Code(s): J96.02 - Acute respiratory failure with hypercapnia Status: Acute (2) Overdose of opiate or related narcotic Code(s): T40.601A - Poisoning by unspecified narcotics, accidental ( unintentional), initial encounter Status: Acute (3) Toxic encephalopathy Code(s): G92 - Toxic encephalopathy Status: Acute (4) Hypernatremia Code(s): E87.0 - Hyperosmolality and hypernatremia Status: Acute (5) Acute kidney injury Code(s): N17.9 - Acute kidney failure, unspecified Status: Acute (6) Hypophosphatemia Code(s): E83.39 - Other disorders of phosphorus metabolism Status: Acute (7) Opiate abuse, continuous Code(s): F11.10 - Opioid abuse, uncomplicated Status: Acute (8) Benzodiazepine abuse, episodic Code(s): F13.10 - Sedative, hypnotic or anxiolytic abuse, uncomplicated Status : Acute (9) Unspecified mood [affective] disorder Code(s): F39 - Unspecified mood [affective] disorder Status: Acute - Plan 37yF s/p possible intentional overdose with tylenol, baclofen with respiratory failure requiring intubation and toxic encephalopathy Hypertension, not well controlled Patient admits she has issues with high blood pressure at home. She does not take any medications. -Start on Norvasc 5 mg daily, may titrate up as indicated -Continue to monitor BP and adjust treatment accordingly Acute hypoxic and hypercarbic Respiratory failure, resolved 01/02 extubated -DuoNeb's as needed -Continue to monitor respiratory status. Currently satting 98% on room air Acetaminophen and Baclofen Overdose, possibly intentional Patient denied today that she had any intent to harm herself, reports inadvertently taking too many Percocet due to increased back pain UDS + for benzodiazepines but negative for opiates?? -Tylenol level peaked at 9.2 given N-acetylcysteine in ER, repeat 5.8. Cleared from tox standpoint per poison control. -Evaluated by psychiatry, appreciate assistance. Accepted for transfer once medically stable. Patient cleared medically to discharge to psych as of yesterday. Toxic Encephalopathy, resolved -Due to above -Avoid long-acting sedatives -Monitor mentation through time Benzodiazepine dependence -watch for withdrawal symptoms -begin low dose Klonopin to prevent withdrawal seizures -Seizure precautions Acute kidney injury, resolved -secondary to dehydration and overdose -Monitor kidney function as indicated Hypernatremia, resolved -secondary to dehydration -Encourage p.o. fluid hydration -monitor Na level as indicated Hypophosphatemia -P.o. repletion ordered DVT GI prophylaxis -Teds SCDs -Lovenox -Pepcid Code Status: FULL Discussed Condition With: patient, nursing staff, Dr. Laguna Discharge Planning: Patient is medically cleared for discharge to psych once bed available
[2018-01-04] MEDS: amLODIPine 5 MG Tablet PO SCH (08:55)
[2018-01-04] MEDS: Heparin - SQ 10,000 UNITS/ML Vial SQ SCH ×3 (08:55→23:54)
[2018-01-04] MEDS: Potassium Phos/Sodium Phos 250 MG Tablet PO SCH ×4 (08:55→20:06)
[2018-01-04] MEDS: clonazePAM 0.5 MG Tablet PO SCH ×2 (10:13→20:06)
[2018-01-04] MEDS: LORazepam 1 MG Tablet PO PRN (23:54)
[2018-01-05] MEDS: Chlorhexidine Gluconate 2% 1 Pack (2 Cloths) TOPICAL SCH (03:01)
[2018-01-05] MEDS: Heparin - SQ 10,000 UNITS/ML Vial SQ SCH ×2 (08:07→15:41)
[2018-01-05] MEDS: amLODIPine 5 MG Tablet PO SCH (08:07)
[2018-01-05] MEDS: clonazePAM 0.5 MG Tablet PO SCH ×2 (08:07→19:59)
--- NOTE | 2018-01-05 10:18 | P.PN ---
Subjective Interval history: Follow-up on patient with Percocet and Baclofen overdose. Patient seen and examined. Patient is requesting an increase in her Klonopin dose. She informs me she takes 1mg three times a day. She denies any fever or chills. She denies any chest pain or shortness of breath. She denies any nausea, vomiting or abdominal pain. Physical Exam Vital signs: Vital Signs 01/04/18 12:00 01/04/18 20:00 01/05/18 00:00 Temperature 98.4 F 98 F 98.3 F Pulse Rate 89 89 73 Respiratory Rate 16 Blood Pressure 149/95 H 149/86 H 129/73 Pulse Oximetry 100 97 96 01/05/18 02:12 01/05/18 03:51 01/05/18 08:00 Temperature 98.1 F 98.3 F Pulse Rate 80 94 H Respiratory Rate 16 Blood Pressure 138/82 163/108 H Pulse Oximetry 98 100 Intake & Output 01/04/18 01/05/18 01/05/18 18:59 06:59 18:59 Intake Total 1100 / 1100 Balance 1100 / 1100 Weight 117.5 kg Intake: Oral 1100 / 1100 Other: # Voids 4 # Urine Diapers 4 Date of Last Bowel Movement 01/04/18 01/04/18 01/04/18 # Bowel Movements 1 Narrative: GENERAL: WDWN obese female patient, INAD. Awake and alert. Sitting on couch over by the window. Does not appear anxious. SKIN: Warm and dry. HEENT: Atraumatic. Normocephalic. Pupils equal and round. No scleral icterus. No injection or drainage. No nasal bleeding or discharge. Mucous membranes pink and moist. NECK: Trachea midline. CARDIOVASCULAR: Regular rate and rhythm. RESPIRATORY: No accessory muscle use. Clear to auscultation. Breath sounds equal bilaterally. GASTROINTESTINAL: Abdomen soft, non-tender, nondistended. MUSCULOSKELETAL: Extremities without clubbing, cyanosis, or edema. No obvious deformities. NEUROLOGICAL: Awake and alert. No obvious cranial nerve deficits. Motor grossly within normal limits. Able to move all extremities spontaneously. Normal speech. PSYCHIATRIC: Calm. Flat affect. Judgment and insight is poor - Urinary Catheter Management Indwelling Urethral Catheter Cath placed during this visit: yes, but has since been removed by the nurse Reason for continuing: Hourly intake/output Insertion date: 12/31/17 Insertion time: 22:12 Removal date: 01/01/18 Removal time: 08:52 Results - Labs CBC & Chem 7: 01/02/18 07:32 01/02/18 07:32 - Procedures None Assessment and Plan - Assessment (1) Acute respiratory failure with hypercapnia Code(s): J96.02 - Acute respiratory failure with hypercapnia Status: Acute (2) Overdose of opiate or related narcotic Code(s): T40.601A - Poisoning by unspecified narcotics, accidental ( unintentional), initial encounter Status: Acute (3) Toxic encephalopathy Code(s): G92 - Toxic encephalopathy Status: Acute (4) Hypernatremia Code(s): E87.0 - Hyperosmolality and hypernatremia Status: Acute (5) Acute kidney injury Code(s): N17.9 - Acute kidney failure, unspecified Status: Acute (6) Hypophosphatemia Code(s): E83.39 - Other disorders of phosphorus metabolism Status: Acute (7) Opiate abuse, continuous Code(s): F11.10 - Opioid abuse, uncomplicated Status: Acute (8) Benzodiazepine abuse, episodic Code(s): F13.10 - Sedative, hypnotic or anxiolytic abuse, uncomplicated Status : Acute (9) Unspecified mood [affective] disorder Code(s): F39 - Unspecified mood [affective] disorder Status: Acute - Plan 37yF s/p possible intentional overdose with tylenol, baclofen with respiratory failure requiring intubation and toxic encephalopathy Hypertension, not well controlled Patient admits she has issues with high blood pressure at home. She does not take any antihypertensives BP still elevated this am, 163/108 -increase Norvasc to 10mg daily -Clonidine prn with parameters -Continue to monitor BP and adjust treatment accordingly Acute hypoxic and hypercarbic Respiratory failure, resolved 01/02 extubated -DuoNeb's as needed -Continue to monitor respiratory status. Currently satting 100% on room air Acetaminophen and Baclofen Overdose, possibly intentional Patient denies that she had any intent to harm herself, reports inadvertently taking too many Percocet due to increased back pain UDS + for benzodiazepines but negative for opiates?? -Tylenol level peaked at 9.2 given N-acetylcysteine in ER, repeat 5.8. Cleared from tox standpoint per poison control. -Evaluated by psychiatry, appreciate assistance. Accepted for transfer once medically stable. Patient cleared medically to discharge to psych as of yesterday. Toxic Encephalopathy, resolved -Due to above -Avoid long-acting sedatives -Monitor mentation through time Benzodiazepine dependence -watch for withdrawal symptoms -continue low dose Klonopin to prevent withdrawal seizures -Seizure precautions Acute kidney injury, resolved -secondary to dehydration and overdose -Monitor kidney function as indicated Hypernatremia, resolved -secondary to dehydration -Encourage p.o. fluid hydration -monitor Na level as indicated Hypophosphatemia -P.o. repletion ordered DVT GI prophylaxis -Teds SCDs -Lovenox -Pepcid Code Status: FULL Discussed Condition With: patient, nursing staff, Dr. Laguna Discharge Planning: Patient is medically cleared for discharge to psych once bed available
[2018-01-05] MEDS ORDERED: amLODIPine 5 MG Tablet PO ONE (11:00)
[2018-01-05 20:02] VITALS: BP 179/108; PULSE 100; RESP 18; TEMP 98.4; O2SAT 99
[2018-01-06] MEDS ORDERED: amLODIPine 5 MG Tablet PO SCH (09:00)
--- NOTE | 2018-01-06 12:27 | ED ---
HPI General Chief Complaint: Overdose Stated Complaint: Evac/Ams Time Seen by Provider: 12/31/17 21:47 History of Present Illness HPI Narrative: 37-year-old female presents as intentional overdose with possibly Tylenol/hydrocodone and baclofen. The empty bottles of medications were found next to the patient was extremely lethargic and unable to protect and airways and was intubated by EMS at the scene. No other information is available at this time since the patient is endotracheally intubated. possible 90 pills containing tylenol 325mg x 90. N-actylcysteine IV pb started empirically prior to the 4 hr level of acetaminophen Related Data Home Medications Medication Instructions Recorded Confirmed fluoxetine 20 mg PO DAILY 01/01/18 01/04/18 olanzapine 5 mg PO DAILY 01/01/18 01/04/18 oxycodone-acetaminophen 90 tab PO Q6H PRN 01/01/18 01/01/18 topiramate 25 mg PO BID 01/01/18 01/04/18 Allergies Allergy/AdvReac Type Severity Reaction Status Date / Time No Known Allergies AdvReac Unknown Uncoded 08/29/17 10:17 Review of Systems ROS Unobtainable ROS Unobtainable: unobtainable due to endotracheal tube PMFSH Social History Social History Substance History: Active Abuse Second Hand Smoke Exposure: Yes Smoking Status: Current some day smoker Tobacco Type: Cigarettes How Often Do You Have a Drink Containing Alcohol: Never Recent Travel in [facility] within the Last 8 Weeks: No Recent Out of Country Travel within the Last 8 Weeks: No Immunization History Tetanus Immunization: Unsure Hx Influenza Vaccine This Season: Unable to Assess Exam Narrative Exam Narrative: GENERAL: pt is sedated and intubated from paramedics and was sedated etomidate and versed en route to intubate SKIN: Warm and dry. HEAD: Atraumatic. Normocephalic. EYES: Pupils equal and round. No scleral icterus. No injection or drainage. ENT: No nasal bleeding or discharge. Mucous membranes pink and moist. ET tube in oropharynx NECK: Trachea midline. No JVD. CARDIOVASCULAR: Regular rate and rhythm. RESPIRATORY: No accessory muscle use. Clear to auscultation. Breath sounds equal bilaterally. GASTROINTESTINAL: Abdomen soft, non-tender, nondistended. Hepatic and splenic margins not palpable. MUSCULOSKELETAL: Extremities without clubbing, cyanosis, or edema. No obvious deformities. NEUROLOGICAL: sedated intubated no neuro exam possible at this time PSYCHIATRIC: sedated intubsated Course Initial Documented Vital Signs Respiratory Rate 14 12/31/17 21:45 Pulse Oximetry 100 12/31/17 21:45 Last Documented Vital Signs Temperature 98.4 F 01/05/18 20:00 Pulse Rate 100 H 01/05/18 20:00 Respiratory Rate 18 01/05/18 20:00 Blood Pressure 179/108 H 01/05/18 20:00 Pulse Oximetry 99 01/05/18 20:00 Critical Care Time Critical Care Time: Yes Total Critical Care Time: 30 Attestation: upportive care with IV fluid resusitation and sedated to not fight ET tube and vent and activated charcol admit and report to ICU Medical Decision Making MDM Narrative Medical decision making narrative: pt was intubated in route by paramedics and I give propfol for sedation and ng tube placed and activated charcol given and admitted to icu serial ekgs done and iv ns for suppotive care for baclofen and opioid overdose NAC iv for tylenol until levels return and [facility] Medical Screen Exam Complete: Yes Emergency Medical Condition: Yes Differential Diagnosis Differential Diagnosis: baclofen overdose vs opioid overdose acetamnophen overdose other coingestant . suicidal overdose intentional Lab Data Result diagrams: 01/02/18 07:32 01/02/18 07:32 Lab Results 12/31/17 12/31/17 12/31/17 Range/Units 21:50 21:50 21:50 WBC 12.5 H (4.0-11.0) th/mm3 RBC 4.53 (4.00-5.30) mil/mm3 Hgb 12.2 (11.6-15.3) gm/dL Hct 37.4 (35.0-46.0) % MCV 82.6 (80.0-100.0) fL MCH 27.0 (27.0-34.0) pg MCHC 32.7 (32.0-36.0) % RDW 14.7 (11.6-17.2) % Plt Count 358 (150-450) th/mm3 MPV 8.0 (7.0-11.0) fL Prelim Diff (Auto) Neut % (Auto) 57.4 (16.0-70.0) % Lymph % (Auto) 32.4 (9.0-44.0) % [place] % (Auto) 8.2 H (0.0-8.0) % Eos % (Auto) 1.6 (0.0-4.0) % Baso % (Auto) 0.4 (0.0-2.0) % Neut # (Auto) 7.2 (1.8-7.7) th/mm3 Lymph # (Auto) 4.0 (1.0-4.8) th/mm3 [place] # (Auto) 1.0 H (0.0-0.9) th/mm3 Eos # (Auto) 0.2 (0.0-0.4) th/mm3 Baso # (Auto) 0.1 (0.0-0.2) th/mm3 WBC Differential . Diff Scan Differential Comment Auto diff final Platelet Estimate (Normal) Platelet Morphology (Normal) PT (9.8-11.6) sec INR Ratio APTT (24.3-30.1) sec Puncture Site Patient Temperature O2 Saturation (90-100) % ABG pH (7.380-7.420) ABG pCO2 (38-42) mmHg ABG pO2 (61-120) mmHg ABG HCO3 (22-26) mmol/L ABG O2 Content (12.0-20.0) Vol % ABG Base Excess (-2-2) mmol/L ABG Methemoglobin (0-2) % Alfonso Test Hemoglobin (12.0-16.0) G/DL Carboxyhemoglobin (0-4) % O2 Delivery Device Vent Setting Inspired O2 % Critical Value Sodium 142 (136-145) meq/L Potassium 3.8 (3.5-5.1) meq/L Chloride 109 H (98-107) meq/L Carbon Dioxide 24.1 (21.0-32.0) meq/L Anion Gap 9 (5-15) meq/L BUN 14 (7-18) mg/dL Creatinine 1.21 H (0.50-1.00) mg/dL Estimated GFR 50 L (>89) mL/min POC Glucose (68-110) mg/dl Random Glucose 102 (74-106) mg/dL Calcium 8.9 (8.5-10.1) mg/dL Phosphorus (2.5-4.9) mg/dL Magnesium (1.5-2.5) mg/dL Total Bilirubin 0.3 (0.2-1.0) mg/dL AST 26 (15-37) U/L ALT 25 (10-53) U/L Alkaline Phosphatase 113 (45-117) U/L Troponin I Less than 0.02 L (0.02-0.05) ng/mL Total Protein 7.9 (6.4-8.2) g/dL Albumin 3.9 (3.4-5.0) g/dL Lipase (73-393) U/L Beta HCG, Quant Less than 1 (0-5) mIU/mL Urine Color (Yellw/Straw) Urine Clarity (Clear) Urine pH (5.0-8.5) Ur Specific Butler (1.002-1.035) Urine Protein (Neg-Trace) mg/dL Urine Glucose (UA) (Negative) mg/dL Urine Ketones (Negative) mg/dL Urine Occult Blood (Negative) Urine Nitrate (Negative) Urine Bilirubin (Negative) Urine Urobilinogen (Less than 2) mg/dL Ur Leukocyte Esterase (Negative) Urine RBC (0-3) /hpf Ur Microscopic Review Nasal Screen MRSA (PCR) (Negative) Salicylates (2.8-20.0) mg/dL Urine Opiates Screen (Neg) Acetaminophen 3.0 L (10.0-30.0) mcg/mL Ur Barbiturates Screen (Neg) Ur Amphetamines Screen (Neg) U Benzodiazepines Scrn (Neg) Urine Cocaine Screen (Neg) U Cannabinoids Screen (Neg) Serum Alcohol (0-5) mg/dL 12/31/17 12/31/17 12/31/17 Range/Units 21:50 21:50 21:56 WBC (4.0-11.0) th/mm3 RBC (4.00-5.30) mil/mm3 Hgb (11.6-15.3) gm/dL Hct (35.0-46.0) % MCV (80.0-100.0) fL MCH (27.0-34.0) pg MCHC (32.0-36.0) % RDW (11.6-17.2) % Plt Count (150-450) th/mm3 MPV (7.0-11.0) fL Prelim Diff (Auto) Neut % (Auto) (16.0-70.0) % Lymph % (Auto) (9.0-44.0) % [place] % (Auto) (0.0-8.0) % Eos % (Auto) (0.0-4.0) % Baso % (Auto) (0.0-2.0) % Neut # (Auto) (1.8-7.7) th/mm3 Lymph # (Auto) (1.0-4.8) th/mm3 [place] # (Auto) (0.0-0.9) th/mm3 Eos # (Auto) (0.0-0.4) th/mm3 Baso # (Auto) (0.0-0.2) th/mm3 WBC Differential Diff Scan Differential Comment Platelet Estimate (Normal) Platelet Morphology (Normal) PT (9.8-11.6) sec INR Ratio APTT (24.3-30.1) sec Puncture Site Right radial Patient Temperature 98.6 O2 Saturation 97 (90-100) % ABG pH 7.31 L (7.380-7.420) ABG pCO2 47 H (38-42) mmHg ABG pO2 498 H (61-120) mmHg ABG HCO3 23 (22-26) mmol/L ABG O2 Content 15.5 (12.0-20.0) Vol % ABG Base Excess -2.1 L (-2-2) mmol/L ABG Methemoglobin 0.6 (0-2) % Alfonso Test Present Hemoglobin 10.4 L (12.0-16.0) G/DL Carboxyhemoglobin 2.4 (0-4) % O2 Delivery Device Vent Vent Setting Prvc/ac Inspired O2 100 % Critical Value No Sodium (136-145) meq/L Potassium (3.5-5.1) meq/L Chloride (98-107) meq/L Carbon Dioxide (21.0-32.0) meq/L Anion Gap (5-15) meq/L BUN (7-18) mg/dL Creatinine (0.50-1.00) mg/dL Estimated GFR (>89) mL/min POC Glucose (68-110) mg/dl Random Glucose (74-106) mg/dL Calcium (8.5-10.1) mg/dL Phosphorus (2.5-4.9) mg/dL Magnesium (1.5-2.5) mg/dL Total Bilirubin (0.2-1.0) mg/dL AST (15-37) U/L ALT (10-53) U/L Alkaline Phosphatase (45-117) U/L Troponin I (0.02-0.05) ng/mL Total Protein (6.4-8.2) g/dL Albumin (3.4-5.0) g/dL Lipase 117 (73-393) U/L Beta HCG, Quant (0-5) mIU/mL Urine Color (Yellw/Straw) Urine Clarity (Clear) Urine pH (5.0-8.5) Ur Specific Butler (1.002-1.035) Urine Protein (Neg-Trace) mg/dL Urine Glucose (UA) (Negative) mg/dL Urine Ketones (Negative) mg/dL Urine Occult Blood (Negative) Urine Nitrate (Negative) Urine Bilirubin (Negative) Urine Urobilinogen (Less than 2) mg/dL Ur Leukocyte Esterase (Negative) Urine RBC (0-3) /hpf Ur Microscopic Review Nasal Screen MRSA (PCR) (Negative) Salicylates Less than 1.7 L (2.8-20.0) mg/dL Urine Opiates Screen (Neg) Acetaminophen (10.0-30.0) mcg/mL Ur Barbiturates Screen (Neg) Ur Amphetamines Screen (Neg) U Benzodiazepines Scrn (Neg) Urine Cocaine Screen (Neg) U Cannabinoids Screen (Neg) Serum Alcohol Less than 3 (0-5) mg/dL 12/31/17 01/01/18 01/01/18 Range/Units 22:27 00:55 00:55 WBC (4.0-11.0) th/mm3 RBC (4.00-5.30) mil/mm3 Hgb (11.6-15.3) gm/dL Hct (35.0-46.0) % MCV (80.0-100.0) fL MCH (27.0-34.0) pg MCHC (32.0-36.0) % RDW (11.6-17.2) % Plt Count (150-450) th/mm3 MPV (7.0-11.0) fL Prelim Diff (Auto) Neut % (Auto) (16.0-70.0) % Lymph % (Auto) (9.0-44.0) % [place] % (Auto) (0.0-8.0) % Eos % (Auto) (0.0-4.0) % Baso % (Auto) (0.0-2.0) % Neut # (Auto) (1.8-7.7) th/mm3 Lymph # (Auto) (1.0-4.8) th/mm3 [place] # (Auto) (0.0-0.9) th/mm3 Eos # (Auto) (0.0-0.4) th/mm3 Baso # (Auto) (0.0-0.2) th/mm3 WBC Differential Diff Scan Differential Comment Platelet Estimate (Normal) Platelet Morphology (Normal) PT 10.1 (9.8-11.6) sec INR 1.0 Ratio APTT 26.4 (24.3-30.1) sec Puncture Site Patient Temperature O2 Saturation (90-100) % ABG pH (7.380-7.420) ABG pCO2 (38-42) mmHg ABG pO2 (61-120) mmHg ABG HCO3 (22-26) mmol/L ABG O2 Content (12.0-20.0) Vol % ABG Base Excess (-2-2) mmol/L ABG Methemoglobin (0-2) % Alfonso Test Hemoglobin (12.0-16.0) G/DL Carboxyhemoglobin (0-4) % O2 Delivery Device Vent Setting Inspired O2 % Critical Value Sodium (136-145) meq/L Potassium (3.5-5.1) meq/L Chloride (98-107) meq/L Carbon Dioxide (21.0-32.0) meq/L Anion Gap (5-15) meq/L BUN (7-18) mg/dL Creatinine (0.50-1.00) mg/dL Estimated GFR (>89) mL/min POC Glucose (68-110) mg/dl Random Glucose (74-106) mg/dL Calcium (8.5-10.1) mg/dL Phosphorus (2.5-4.9) mg/dL Magnesium (1.5-2.5) mg/dL Total Bilirubin (0.2-1.0) mg/dL AST (15-37) U/L ALT (10-53) U/L Alkaline Phosphatase (45-117) U/L Troponin I (0.02-0.05) ng/mL Total Protein (6.4-8.2) g/dL Albumin (3.4-5.0) g/dL Lipase (73-393) U/L Beta HCG, Quant (0-5) mIU/mL Urine Color Colorless (Yellw/Straw) Urine Clarity Clear (Clear) Urine pH 7.0 (5.0-8.5) Ur Specific Butler 1.003 (1.002-1.035) Urine Protein Negative (Neg-Trace) mg/dL Urine Glucose (UA) 50 (Negative) mg/dL Urine Ketones 20 (Negative) mg/dL Urine Occult Blood Negative (Negative) Urine Nitrate Negative (Negative) Urine Bilirubin Negative (Negative) Urine Urobilinogen Less than 2 (Less than 2) mg/dL Ur Leukocyte Esterase Negative (Negative) Urine RBC Less than 1 (0-3) /hpf Ur Microscopic Review Not Reportable Nasal Screen MRSA (PCR) (Negative) Salicylates (2.8-20.0) mg/dL Urine Opiates Screen Neg (Neg) Acetaminophen (10.0-30.0) mcg/mL Ur Barbiturates Screen Neg (Neg) Ur Amphetamines Screen Neg (Neg) U Benzodiazepines Scrn Pos H (Neg) Urine Cocaine Screen Neg (Neg) U Cannabinoids Screen Neg (Neg) Serum Alcohol (0-5) mg/dL 01/01/18 01/01/18 01/01/18 Range/Units 01:15 01:58 03:59 WBC 9.6 (4.0-11.0) th/mm3 RBC 4.69 (4.00-5.30) mil/mm3 Hgb 12.7 (11.6-15.3) gm/dL Hct 38.9 (35.0-46.0) % MCV 82.9 (80.0-100.0) fL MCH 27.1 (27.0-34.0) pg MCHC 32.7 (32.0-36.0) % RDW 15.3 (11.6-17.2) % Plt Count 301 (150-450) th/mm3 MPV 8.3 (7.0-11.0) fL Prelim Diff (Auto) Slide review pending Neut % (Auto) 59.8 (16.0-70.0) % Lymph % (Auto) 29.2 (9.0-44.0) % [place] % (Auto) 8.7 H (0.0-8.0) % Eos % (Auto) 1.7 (0.0-4.0) % Baso % (Auto) 0.6 (0.0-2.0) % Neut # (Auto) 5.7 (1.8-7.7) th/mm3 Lymph # (Auto) 2.8 (1.0-4.8) th/mm3 [place] # (Auto) 0.8 (0.0-0.9) th/mm3 Eos # (Auto) 0.2 (0.0-0.4) th/mm3 Baso # (Auto) 0.1 (0.0-0.2) th/mm3 WBC Differential . Diff Scan Auto diff confirmed Differential Comment . Platelet Estimate Normal (Normal) Platelet Morphology Normal (Normal) PT (9.8-11.6) sec INR Ratio APTT (24.3-30.1) sec Puncture Site Patient Temperature O2 Saturation (90-100) % ABG pH (7.380-7.420) ABG pCO2 (38-42) mmHg ABG pO2 (61-120) mmHg ABG HCO3 (22-26) mmol/L ABG O2 Content (12.0-20.0) Vol % ABG Base Excess (-2-2) mmol/L ABG Methemoglobin (0-2) % Alfonso Test Hemoglobin (12.0-16.0) G/DL Carboxyhemoglobin (0-4) % O2 Delivery Device Vent Setting Inspired O2 % Critical Value Sodium (136-145) meq/L Potassium (3.5-5.1) meq/L Chloride (98-107) meq/L Carbon Dioxide (21.0-32.0) meq/L Anion Gap (5-15) meq/L BUN (7-18) mg/dL Creatinine (0.50-1.00) mg/dL Estimated GFR (>89) mL/min POC Glucose (68-110) mg/dl Random Glucose (74-106) mg/dL Calcium (8.5-10.1) mg/dL Phosphorus (2.5-4.9) mg/dL Magnesium (1.5-2.5) mg/dL Total Bilirubin (0.2-1.0) mg/dL AST (15-37) U/L ALT (10-53) U/L Alkaline Phosphatase (45-117) U/L Troponin I (0.02-0.05) ng/mL Total Protein (6.4-8.2) g/dL Albumin (3.4-5.0) g/dL Lipase (73-393) U/L Beta HCG, Quant (0-5) mIU/mL Urine Color (Yellw/Straw) Urine Clarity (Clear) Urine pH (5.0-8.5) Ur Specific Butler (1.002-1.035) Urine Protein (Neg-Trace) mg/dL Urine Glucose (UA) (Negative) mg/dL Urine Ketones (Negative) mg/dL Urine Occult Blood (Negative) Urine Nitrate (Negative) Urine Bilirubin (Negative) Urine Urobilinogen (Less than 2) mg/dL Ur Leukocyte Esterase (Negative) Urine RBC (0-3) /hpf Ur Microscopic Review Nasal Screen MRSA (PCR) Not detected (Negative) Salicylates (2.8-20.0) mg/dL Urine Opiates Screen (Neg) Acetaminophen 9.2 L (10.0-30.0) mcg/mL Ur Barbiturates Screen (Neg) Ur Amphetamines Screen (Neg) U Benzodiazepines Scrn (Neg) Urine Cocaine Screen (Neg) U Cannabinoids Screen (Neg) Serum Alcohol (0-5) mg/dL 01/01/18 01/01/18 01/01/18 Range/Units 03:59 03:59 08:37 WBC (4.0-11.0) th/mm3 RBC (4.00-5.30) mil/mm3 Hgb (11.6-15.3) gm/dL Hct (35.0-46.0) % MCV (80.0-100.0) fL MCH (27.0-34.0) pg MCHC (32.0-36.0) % RDW (11.6-17.2) % Plt Count (150-450) th/mm3 MPV (7.0-11.0) fL Prelim Diff (Auto) Neut % (Auto) (16.0-70.0) % Lymph % (Auto) (9.0-44.0) % [place] % (Auto) (0.0-8.0) % Eos % (Auto) (0.0-4.0) % Baso % (Auto) (0.0-2.0) % Neut # (Auto) (1.8-7.7) th/mm3 Lymph # (Auto) (1.0-4.8) th/mm3 [place] # (Auto) (0.0-0.9) th/mm3 Eos # (Auto) (0.0-0.4) th/mm3 Baso # (Auto) (0.0-0.2) th/mm3 WBC Differential Diff Scan Differential Comment Platelet Estimate (Normal) Platelet Morphology (Normal) PT 10.9 (9.8-11.6) sec INR 1.1 Ratio APTT 19.0 L D (24.3-30.1) sec Puncture Site Patient Temperature O2 Saturation (90-100) % ABG pH (7.380-7.420) ABG pCO2 (38-42) mmHg ABG pO2 (61-120) mmHg ABG HCO3 (22-26) mmol/L ABG O2 Content (12.0-20.0) Vol % ABG Base Excess (-2-2) mmol/L ABG Methemoglobin (0-2) % Alfonso Test Hemoglobin (12.0-16.0) G/DL Carboxyhemoglobin (0-4) % O2 Delivery Device Vent Setting Inspired O2 % Critical Value Sodium 151 H (136-145) meq/L Potassium 4.4 (3.5-5.1) meq/L Chloride 119 H D (98-107) meq/L Carbon Dioxide 24.3 (21.0-32.0) meq/L Anion Gap 8 (5-15) meq/L BUN 12 (7-18) mg/dL Creatinine 0.86 (0.50-1.00) mg/dL Estimated GFR 74 L (>89) mL/min POC Glucose (68-110) mg/dl Random Glucose 124 H (74-106) mg/dL Calcium 7.6 L D (8.5-10.1) mg/dL Phosphorus 2.0 L (2.5-4.9) mg/dL Magnesium 2.2 (1.5-2.5) mg/dL Total Bilirubin 0.2 (0.2-1.0) mg/dL AST 23 (15-37) U/L ALT 29 (10-53) U/L Alkaline Phosphatase 92 (45-117) U/L Troponin I (0.02-0.05) ng/mL Total Protein 6.8 D (6.4-8.2) g/dL Albumin 3.1 L D (3.4-5.0) g/dL Lipase (73-393) U/L Beta HCG, Quant (0-5) mIU/mL Urine Color (Yellw/Straw) Urine Clarity (Clear) Urine pH (5.0-8.5) Ur Specific Butler (1.002-1.035) Urine Protein (Neg-Trace) mg/dL Urine Glucose (UA) (Negative) mg/dL Urine Ketones (Negative) mg/dL Urine Occult Blood (Negative) Urine Nitrate (Negative) Urine Bilirubin (Negative) Urine Urobilinogen (Less than 2) mg/dL Ur Leukocyte Esterase (Negative) Urine RBC (0-3) /hpf Ur Microscopic Review Nasal Screen MRSA (PCR) (Negative) Salicylates (2.8-20.0) mg/dL Urine Opiates Screen (Neg) Acetaminophen 5.8 L (10.0-30.0) mcg/mL Ur Barbiturates Screen (Neg) Ur Amphetamines Screen (Neg) U Benzodiazepines Scrn (Neg) Urine Cocaine Screen (Neg) U Cannabinoids Screen (Neg) Serum Alcohol (0-5) mg/dL 01/01/18 01/01/18 01/01/18 Range/Units 09:26 12:15 13:32 WBC (4.0-11.0) th/mm3 RBC (4.00-5.30) mil/mm3 Hgb (11.6-15.3) gm/dL Hct (35.0-46.0) % MCV (80.0-100.0) fL MCH (27.0-34.0) pg MCHC (32.0-36.0) % RDW (11.6-17.2) % Plt Count (150-450) th/mm3 MPV (7.0-11.0) fL Prelim Diff (Auto) Neut % (Auto) (16.0-70.0) % Lymph % (Auto) (9.0-44.0) % [place] % (Auto) (0.0-8.0) % Eos % (Auto) (0.0-4.0) % Baso % (Auto) (0.0-2.0) % Neut # (Auto) (1.8-7.7) th/mm3 Lymph # (Auto) (1.0-4.8) th/mm3 [place] # (Auto) (0.0-0.9) th/mm3 Eos # (Auto) (0.0-0.4) th/mm3 Baso # (Auto) (0.0-0.2) th/mm3 WBC Differential Diff Scan Differential Comment Platelet Estimate (Normal) Platelet Morphology (Normal) PT 10.3 (9.8-11.6) sec INR 1.0 Ratio APTT (24.3-30.1) sec Puncture Site Patient Temperature O2 Saturation (90-100) % ABG pH (7.380-7.420) ABG pCO2 (38-42) mmHg ABG pO2 (61-120) mmHg ABG HCO3 (22-26) mmol/L ABG O2 Content (12.0-20.0) Vol % ABG Base Excess (-2-2) mmol/L ABG Methemoglobin (0-2) % Alfonso Test Hemoglobin (12.0-16.0) G/DL Carboxyhemoglobin (0-4) % O2 Delivery Device Vent Setting Inspired O2 % Critical Value Sodium (136-145) meq/L Potassium (3.5-5.1) meq/L Chloride (98-107) meq/L Carbon Dioxide (21.0-32.0) meq/L Anion Gap (5-15) meq/L BUN (7-18) mg/dL Creatinine (0.50-1.00) mg/dL Estimated GFR (>89) mL/min POC Glucose 103 119 H (68-110) mg/dl Random Glucose (74-106) mg/dL Calcium (8.5-10.1) mg/dL Phosphorus (2.5-4.9) mg/dL Magnesium (1.5-2.5) mg/dL Total Bilirubin (0.2-1.0) mg/dL AST (15-37) U/L ALT (10-53) U/L Alkaline Phosphatase (45-117) U/L Troponin I (0.02-0.05) ng/mL Total Protein (6.4-8.2) g/dL Albumin (3.4-5.0) g/dL Lipase (73-393) U/L Beta HCG, Quant (0-5) mIU/mL Urine Color (Yellw/Straw) Urine Clarity (Clear) Urine pH (5.0-8.5) Ur Specific Butler (1.002-1.035) Urine Protein (Neg-Trace) mg/dL Urine Glucose (UA) (Negative) mg/dL Urine Ketones (Negative) mg/dL Urine Occult Blood (Negative) Urine Nitrate (Negative) Urine Bilirubin (Negative) Urine Urobilinogen (Less than 2) mg/dL Ur Leukocyte Esterase (Negative) Urine RBC (0-3) /hpf Ur Microscopic Review Nasal Screen MRSA (PCR) (Negative) Salicylates (2.8-20.0) mg/dL Urine Opiates Screen (Neg) Acetaminophen (10.0-30.0) mcg/mL Ur Barbiturates Screen (Neg) Ur Amphetamines Screen (Neg) U Benzodiazepines Scrn (Neg) Urine Cocaine Screen (Neg) U Cannabinoids Screen (Neg) Serum Alcohol (0-5) mg/dL 01/01/18 01/01/18 01/01/18 Range/Units 13:32 16:40 19:43 WBC (4.0-11.0) th/mm3 RBC (4.00-5.30) mil/mm3 Hgb (11.6-15.3) gm/dL Hct (35.0-46.0) % MCV (80.0-100.0) fL MCH (27.0-34.0) pg MCHC (32.0-36.0) % RDW (11.6-17.2) % Plt Count (150-450) th/mm3 MPV (7.0-11.0) fL Prelim Diff (Auto) Neut % (Auto) (16.0-70.0) % Lymph % (Auto) (9.0-44.0) % [place] % (Auto) (0.0-8.0) % Eos % (Auto) (0.0-4.0) % Baso % (Auto) (0.0-2.0) % Neut # (Auto) (1.8-7.7) th/mm3 Lymph # (Auto) (1.0-4.8) th/mm3 [place] # (Auto) (0.0-0.9) th/mm3 Eos # (Auto) (0.0-0.4) th/mm3 Baso # (Auto) (0.0-0.2) th/mm3 WBC Differential Diff Scan Differential Comment Platelet Estimate (Normal) Platelet Morphology (Normal) PT (9.8-11.6) sec INR Ratio APTT (24.3-30.1) sec Puncture Site Patient Temperature O2 Saturation (90-100) % ABG pH (7.380-7.420) ABG pCO2 (38-42) mmHg ABG pO2 (61-120) mmHg ABG HCO3 (22-26) mmol/L ABG O2 Content (12.0-20.0) Vol % ABG Base Excess (-2-2) mmol/L ABG Methemoglobin (0-2) % Alfonso Test Hemoglobin (12.0-16.0) G/DL Carboxyhemoglobin (0-4) % O2 Delivery Device Vent Setting Inspired O2 % Critical Value Sodium 147 H (136-145) meq/L Potassium 3.7 (3.5-5.1) meq/L Chloride 116 H (98-107) meq/L Carbon Dioxide 25.4 (21.0-32.0) meq/L Anion Gap 6 (5-15) meq/L BUN 9 (7-18) mg/dL Creatinine 0.62 (0.50-1.00) mg/dL Estimated GFR Greater than 89 (>89) mL/min POC Glucose 105 150 H (68-110) mg/dl Random Glucose 115 H (74-106) mg/dL Calcium 7.6 L (8.5-10.1) mg/dL Phosphorus (2.5-4.9) mg/dL Magnesium (1.5-2.5) mg/dL Total Bilirubin 0.3 (0.2-1.0) mg/dL AST 19 (15-37) U/L ALT 20 (10-53) U/L Alkaline Phosphatase 101 (45-117) U/L Troponin I (0.02-0.05) ng/mL Total Protein 6.9 (6.4-8.2) g/dL Albumin 3.3 L (3.4-5.0) g/dL Lipase (73-393) U/L Beta HCG, Quant (0-5) mIU/mL Urine Color (Yellw/Straw) Urine Clarity (Clear) Urine pH (5.0-8.5) Ur Specific Butler (1.002-1.035) Urine Protein (Neg-Trace) mg/dL Urine Glucose (UA) (Negative) mg/dL Urine Ketones (Negative) mg/dL Urine Occult Blood (Negative) Urine Nitrate (Negative) Urine Bilirubin (Negative) Urine Urobilinogen (Less than 2) mg/dL Ur Leukocyte Esterase (Negative) Urine RBC (0-3) /hpf Ur Microscopic Review Nasal Screen MRSA (PCR) (Negative) Salicylates (2.8-20.0) mg/dL Urine Opiates Screen (Neg) Acetaminophen (10.0-30.0) mcg/mL Ur Barbiturates Screen (Neg) Ur Amphetamines Screen (Neg) U Benzodiazepines Scrn (Neg) Urine Cocaine Screen (Neg) U Cannabinoids Screen (Neg) Serum Alcohol (0-5) mg/dL 01/01/18 01/02/18 01/02/18 Range/Units 22:59 04:59 07:32 WBC 12.0 H (4.0-11.0) th/mm3 RBC 4.21 (4.00-5.30) mil/mm3 Hgb 11.1 L (11.6-15.3) gm/dL Hct 35.2 (35.0-46.0) % MCV 83.5 (80.0-100.0) fL MCH 26.3 L (27.0-34.0) pg MCHC 31.5 L (32.0-36.0) % RDW 15.1 (11.6-17.2) % Plt Count 278 (150-450) th/mm3 MPV 9.0 (7.0-11.0) fL Prelim Diff (Auto) Neut % (Auto) (16.0-70.0) % Lymph % (Auto) (9.0-44.0) % [place] % (Auto) (0.0-8.0) % Eos % (Auto) (0.0-4.0) % Baso % (Auto) (0.0-2.0) % Neut # (Auto) (1.8-7.7) th/mm3 Lymph # (Auto) (1.0-4.8) th/mm3 [place] # (Auto) (0.0-0.9) th/mm3 Eos # (Auto) (0.0-0.4) th/mm3 Baso # (Auto) (0.0-0.2) th/mm3 WBC Differential Diff Scan Differential Comment Platelet Estimate (Normal) Platelet Morphology (Normal) PT (9.8-11.6) sec INR Ratio APTT (24.3-30.1) sec Puncture Site Patient Temperature O2 Saturation (90-100) % ABG pH (7.380-7.420) ABG pCO2 (38-42) mmHg ABG pO2 (61-120) mmHg ABG HCO3 (22-26) mmol/L ABG O2 Content (12.0-20.0) Vol % ABG Base Excess (-2-2) mmol/L ABG Methemoglobin (0-2) % Alfonso Test Hemoglobin (12.0-16.0) G/DL Carboxyhemoglobin (0-4) % O2 Delivery Device Vent Setting Inspired O2 % Critical Value Sodium (136-145) meq/L Potassium (3.5-5.1) meq/L Chloride (98-107) meq/L Carbon Dioxide (21.0-32.0) meq/L Anion Gap (5-15) meq/L BUN (7-18) mg/dL Creatinine (0.50-1.00) mg/dL Estimated GFR (>89) mL/min POC Glucose 104 94 (68-110) mg/dl Random Glucose (74-106) mg/dL Calcium (8.5-10.1) mg/dL Phosphorus (2.5-4.9) mg/dL Magnesium (1.5-2.5) mg/dL Total Bilirubin (0.2-1.0) mg/dL AST (15-37) U/L ALT (10-53) U/L Alkaline Phosphatase (45-117) U/L Troponin I (0.02-0.05) ng/mL Total Protein (6.4-8.2) g/dL Albumin (3.4-5.0) g/dL Lipase (73-393) U/L Beta HCG, Quant (0-5) mIU/mL Urine Color (Yellw/Straw) Urine Clarity (Clear) Urine pH (5.0-8.5) Ur Specific Butler (1.002-1.035) Urine Protein (Neg-Trace) mg/dL Urine Glucose (UA) (Negative) mg/dL Urine Ketones (Negative) mg/dL Urine Occult Blood (Negative) Urine Nitrate (Negative) Urine Bilirubin (Negative) Urine Urobilinogen (Less than 2) mg/dL Ur Leukocyte Esterase (Negative) Urine RBC (0-3) /hpf Ur Microscopic Review Nasal Screen MRSA (PCR) (Negative) Salicylates (2.8-20.0) mg/dL Urine Opiates Screen (Neg) Acetaminophen (10.0-30.0) mcg/mL Ur Barbiturates Screen (Neg) Ur Amphetamines Screen (Neg) U Benzodiazepines Scrn (Neg) Urine Cocaine Screen (Neg) U Cannabinoids Screen (Neg) Serum Alcohol (0-5) mg/dL 01/02/18 01/02/18 01/02/18 Range/Units 07:32 07:32 07:38 WBC (4.0-11.0) th/mm3 RBC (4.00-5.30) mil/mm3 Hgb (11.6-15.3) gm/dL Hct (35.0-46.0) % MCV (80.0-100.0) fL MCH (27.0-34.0) pg MCHC (32.0-36.0) % RDW (11.6-17.2) % Plt Count (150-450) th/mm3 MPV (7.0-11.0) fL Prelim Diff (Auto) Neut % (Auto) (16.0-70.0) % Lymph % (Auto) (9.0-44.0) % [place] % (Auto) (0.0-8.0) % Eos % (Auto) (0.0-4.0) % Baso % (Auto) (0.0-2.0) % Neut # (Auto) (1.8-7.7) th/mm3 Lymph # (Auto) (1.0-4.8) th/mm3 [place] # (Auto) (0.0-0.9) th/mm3 Eos # (Auto) (0.0-0.4) th/mm3 Baso # (Auto) (0.0-0.2) th/mm3 WBC Differential Diff Scan Differential Comment Platelet Estimate (Normal) Platelet Morphology (Normal) PT 11.3 (9.8-11.6) sec INR 1.1 Ratio APTT (24.3-30.1) sec Puncture Site Patient Temperature O2 Saturation (90-100) % ABG pH (7.380-7.420) ABG pCO2 (38-42) mmHg ABG pO2 (61-120) mmHg ABG HCO3 (22-26) mmol/L ABG O2 Content (12.0-20.0) Vol % ABG Base Excess (-2-2) mmol/L ABG Methemoglobin (0-2) % Alfonso Test Hemoglobin (12.0-16.0) G/DL Carboxyhemoglobin (0-4) % O2 Delivery Device Vent Setting Inspired O2 % Critical Value Sodium 143 (136-145) meq/L Potassium 4.0 (3.5-5.1) meq/L Chloride 111 H (98-107) meq/L Carbon Dioxide 21.7 (21.0-32.0) meq/L Anion Gap 10 (5-15) meq/L BUN 4 L (7-18) mg/dL Creatinine 0.62 (0.50-1.00) mg/dL Estimated GFR Greater than 89 (>89) mL/min POC Glucose 99 (68-110) mg/dl Random Glucose 95 (74-106) mg/dL Calcium 8.5 D (8.5-10.1) mg/dL Phosphorus 1.7 L (2.5-4.9) mg/dL Magnesium 1.8 (1.5-2.5) mg/dL Total Bilirubin 0.5 (0.2-1.0) mg/dL AST 31 (15-37) U/L ALT 21 (10-53) U/L Alkaline Phosphatase 96 (45-117) U/L Troponin I (0.02-0.05) ng/mL Total Protein 6.7 (6.4-8.2) g/dL Albumin 3.0 L (3.4-5.0) g/dL Lipase (73-393) U/L Beta HCG, Quant (0-5) mIU/mL Urine Color (Yellw/Straw) Urine Clarity (Clear) Urine pH (5.0-8.5) Ur Specific Butler (1.002-1.035) Urine Protein (Neg-Trace) mg/dL Urine Glucose (UA) (Negative) mg/dL Urine Ketones (Negative) mg/dL Urine Occult Blood (Negative) Urine Nitrate (Negative) Urine Bilirubin (Negative) Urine Urobilinogen (Less than 2) mg/dL Ur Leukocyte Esterase (Negative) Urine RBC (0-3) /hpf Ur Microscopic Review Nasal Screen MRSA (PCR) (Negative) Salicylates (2.8-20.0) mg/dL Urine Opiates Screen (Neg) Acetaminophen (10.0-30.0) mcg/mL Ur Barbiturates Screen (Neg) Ur Amphetamines Screen (Neg) U Benzodiazepines Scrn (Neg) Urine Cocaine Screen (Neg) U Cannabinoids Screen (Neg) Serum Alcohol (0-5) mg/dL Imaging Data Radiologist's impression: Abdomen X-Ray 12/31/17 21:51 CONCLUSION: Nasogastric tube tip is in the upper stomach, sidehole near the GE junction. Chest X-Ray 12/31/17 21:51 CONCLUSION: Clear lungs. Endotracheal tube tip approximately 3 cm above the anant. Discharge Plan Discharge Disposition Patient Disposition: 65 Disc To [facility] Facility Discharge Condition Condition: Stable Discharge Order Discharge Orders: Discharge Order (Routine); Ordered 01/03/18 Ordered By: Jacquie Clark Discharge Details Anticipated Discharge Date: 01/03/18 Physicians Team ED Provider: Kingston Weber Primary Care Provider: Primary Care Chari Duarte Attending Provider: Yg Laguna Other Providers: Jayme Gonzáles Eric G Status ED Status: Left Department Discharge Information Discharge Date/Time: 01/01/18 01:40
== END 2018-01-05 22:17 ==
LOC: NEPE 21:38 → NEDA 23:52 → HIMC 01-01 01:00 → N05 01-02 15:46
PROVIDERS: ADMIT Hospitalist; ATTEND Hospitalist

== ENCOUNTER 2018-01-05 18:49 | Inpatient (IN) ==
[2018-01-05] MEDS ORDERED: Aluminum/Magnesium/Simethacone Susp 30 ML UDC PO PRN (23:45)
[2018-01-05] MEDS ORDERED: LORazepam 1 MG Tablet PO PRN (23:49)
[2018-01-06] MEDS: Acetaminophen 325 MG Tablet PO PRN ×2 (00:10→09:47)
[2018-01-06 07:45] LABS: Calcium 8.9 mg/dL (8.5-10.1); Carbon Dioxide 25.6 meq/L (21.0-32.0); Potassium 3.9 meq/L (3.5-5.1)
[2018-01-06 07:49] LABS: Chol/HDL Ratio 3.12 Ratio; HDL Cholesterol 54.8 mg/dL (40.0-60.0)
[2018-01-06] MEDS: amLODIPine 10 MG Tablet PO SCH (09:48)
[2018-01-06] MEDS: Metoprolol Tartrate 25 MG Tablet PO SCH ×2 (09:48→20:47)
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
--- NOTE | 2018-01-06 11:51 | P.PNPSY ---
Subjective Remarks: The patient is a 37-year-old woman, domiciled with her mother in [place], unemployed, with a psychiatric history of drug-induced psychosis, substance use disorder, schizophrenia, personality disorder, bipolar disorder, previous psychiatric hospitalizations, she was hospitalized here in [place] in August 2017. Hospitalized this time on the Nelson act after a suicidal attempt by overdosing. The patient reports that the reason she is here is because she has been prescribed opiates for a long time, and she has recently been tapered down of this medication and started in baclofen "which is not working for me, and height took too many of this medication for a pain I ended up overdosing unintentionally". At the moment of this evaluation the patient denies mood symptoms, she denies suicidal and homicidal ideation, she denies visual and auditory hallucinations, but the patient has a prominent flat affect, seems to be internally preoccupied and is oddly related. Mental Status Examination Appearance: Appropriate Consciousness: Alert Orientation: x4 Motor Activity: Normal gait Speech: Unremarkable Language: Adequate Fund of Knowledge: Adequate Attention and Concentration: Adequate Memory: Unremarkable Mood: Appropriate, Irritable Affect: Flat Thought Process & Associations: Intact Thought Content: Appropriate Hallucination Type: None Delusion Type: Bizarre Suicidal Ideation: No Suicidal Plan: No Suicidal Intention: No Homicidal Ideation: No Homicidal Plan: No Homicidal Intention: No Insight: Poor Judgment: Poor Assessment and Plan - Assessment (1) Unspecified mood [affective] disorder Code(s): F39 - Unspecified mood [affective] disorder Status: Acute - Plan Plan: Estimated LOS I have seen and examined this patient, review previous documentation, I agree and concur with the plan of admission for stabilization and safety. Consult appreciated. Justification for Continued Inpatient Stay: Continue admission.
[2018-01-06 12:37] LABS: Hemoglobin A1c 5.5 % (4.3-6.0)
[2018-01-06] MEDS ORDERED: FLUoxetine 20 MG Capsule PO SCH (13:15)
[2018-01-06] MEDS: clonazePAM 1 MG Tablet PO PRN ×2 (13:26→20:47)
--- NOTE | 2018-01-06 15:50 | P.CON ---
History of Present Illness Service: [facility] Consult date: 01/06/18 Requesting Physician: Jefferson Andrade Reason for Consult: Assisted medical management Primary Care Provider: UNKNOWN Chief Complaint: "Took too many meds" History of Present Illness: Patient is a 37-year-old female who initially came to the hospital is intentional overdose with Percocet and baclofen. Unable to protect her airway, she is in acute hypoxic and hypercarbic respiratory failure she was intubated. Patient had toxic encephalopathy secondary to narcotic overdose. She was in critical care and was treated IV Mucomyst per poison control. Patient was extubated 01/02/18. She is being monitored for benzodiazepine withdrawals. Followed by psychiatry and was started on low-dose Klonopin. She is now admitted to inpatient psychiatry unit for further evaluation. Consulted for assistance with medical management. Patient seen and examined today. Reports she is doing better. States that she has hypertension prior to coming to the hospital but was not on any medications. Discussed with patient was started on Norvasc and will have to continue to readjust her medications. Verbalized understanding. Denies pain and discomfort. Denies SOB/ dyspnea. Denies chest pain, palpitations, headaches, dizziness. Denies fevers, chills, n/v/d. Denies dysuria. Review of Systems All other systems reviewed negative except as stated in HPI PMFSH - History History Provided By: Patient - Medical History Medical History: Medical History (Last Reviewed 01/06/18 @ 16:27 by RICH Mckay) HTN (hypertension) - Surgical History Surgical History: Surgical History (Last Updated 01/06/18 @ 16:27 by RICH Mckay) H/O removal of cyst - Family History Family History: Family History (Last Updated 01/06/18 @ 16:28 by RICH Mckay) Father Heart attack - Social History I have reviewed the patient's Social History: Yes - Tobacco History Second Hand Smoke Exposure: Yes Tobacco Use In Past 30 Days: Yes Smoking Status: Current some day smoker Tobacco Type: Cigarettes Packs Per Day: 1 - Alcohol History How Often Do You Have a Drink Containing Alcohol: Never - Substance Use History Substance History: Active Abuse - Travel History Recent Travel in the [place] Within the Last 8 Weeks: No Recent Travel Out of the Country Within the Last 8 Weeks: No Medications and Allergies Active Medications: Active Medications Acetaminophen (Tylenol) 650 mg PO Q4H PRN PRN Reason: Pain 1-5 or Temp >101F Last Admin: 01/06/18 09:47 Dose: 650 mg Al Hydrox/Mg Hydrox/Simethicone (Mag-Al Plus Susp Liq) 30 ml PO Q6H PRN PRN Reason: DYSPEPSIA Al Hydroxide/Mg Hydroxide (Milk Of Magnesia Liq) 30 ml PO DAILY PRN PRN Reason: CONSTIPATION Amlodipine Besylate (Norvasc) 10 mg PO DAILY [facility] Last Admin: 01/06/18 09:48 Dose: 10 mg Clonazepam (Klonopin) 1 mg PO Q8HR PRN PRN Reason: Anxiety Last Admin: 01/06/18 13:26 Dose: 1 mg Clonidine HCl (Catapres) 0.1 mg PO Q6H PRN PRN Reason: SBP >180, DBP >100, HR >60 Flumazenil (Romazecon Inj) 0.2 mg IV.PUSH Q1M PRN PRN Reason: OVERSEDATION Fluoxetine HCl (Prozac) 20 mg PO DAILY [facility] Metoprolol Tartrate (Lopressor) 25 mg PO BID [facility] Last Admin: 01/06/18 09:48 Dose: 25 mg Oxycodone/Acetaminophen (Percocet 7.5/325 Mg) 1 tab PO Q8H PRN PRN Reason: Pain 7-10 Allergies Allergy/AdvReac Type Severity Reaction Status Date / Time No Known Allergies AdvReac Unknown Uncoded 08/29/17 10:17 Home Medications Medication Instructions Recorded Confirmed Type fluoxetine 20 mg PO DAILY 01/01/18 01/04/18 History olanzapine 5 mg PO DAILY 01/01/18 01/04/18 History oxycodone-acetaminophen 90 tab PO Q6H PRN 01/01/18 01/01/18 History topiramate 25 mg PO BID 01/01/18 01/04/18 History Physical Exam Vital signs: Vital Signs 01/05/18 22:52 01/06/18 05:56 Temperature 98.1 F 98.0 F Pulse Rate 94 H 95 H Respiratory Rate 18 18 Blood Pressure 147/97 H 161/97 H Pulse Oximetry 96 98 Intake & Output 09/18/18 09/19/18 09/19/18 18:59 06:59 18:59 Weight 102.1 kg Other: Weight On Admission 102.1 kg Narrative: GENERAL: This is a well-nourished, well-developed patient, in no apparent distress. SKIN: Warm and dry. HEENT: Normocephalic. Pupils equal round and reactive. Nose without bleeding. Airway patent. NECK: Trachea midline. CARDIOVASCULAR: Regular rate and rhythm without murmurs, gallops, or rubs. RESPIRATORY: Clear to auscultation. Breath sounds equal bilaterally. No wheezes , rales, or rhonchi. GASTROINTESTINAL: Abdomen soft, non-tender, nondistended. Bowel Sounds normoactive x4. MUSCULOSKELETAL: Extremities without clubbing, cyanosis, or edema. NEUROLOGICAL: Awake and alert. No focal neuro deficit. Moves all extremities. Slow speech. Assessment and Plan - Plan Patient is a 37-year-old female who initially came to the hospital is intentional overdose with Percocet and baclofen. Unable to protect her airway, she is in acute hypoxic and hypercarbic respiratory failure she was intubated. Patient had toxic encephalopathy secondary to narcotic overdose. She was in critical care and was treated IV Mucomyst per poison control. Patient was extubated 01/02/18. She is being monitored for benzodiazepine withdrawals. Followed by psychiatry and was started on low-dose Klonopin. She is now admitted to inpatient psychiatry unit for further evaluation. Consulted for assistance with medical management. Possible intentional overdose Depression -Managed by psychiatry team HTN, uncontrolled -Started on Norvasc, will add metoprolol 12.5 mg -Clonidine as needed -Monitor BP trend. Adjust medication as needed. Percocet and baclofen overdose -Has been treated by IV Mucomyst and was cleared by poison control -Tylenol level as check 01/01/18 -5.8 Benzodiazepine dependence Opioid dependence -On low dose Klonopin to prevent withdrawal seizures -Seizure precautions -Patient was restarted on Percocet 7.5 mg/325 mg by primary team Current tobacco use -Counseled -Nicotine patch DVT prop ambulatory Code Status: Full code Discussed Condition With: Patient, nursing Discharge Planning: DC disposition by primary team
[2018-01-06 16:13] LABS: Baso # (Auto) 0.1 th/mm3 (0.0-0.2); Baso % (Auto) 0.5 % (0.0-2.0); Eos # (Auto) 0.1 th/mm3 (0.0-0.4); Eos % (Auto) 1.3 % (0.0-4.0); Lymph # (Auto) 2.1 th/mm3 (1.0-4.8); Lymph % (Auto) 20.8 % (9.0-44.0); Mean Corpuscular HGB Conc 32.5 % (32.0-36.0); Mean Corpuscular Volume 83.2 fL (80.0-100.0); Mean Platelet Volume 7.9 fL (7.0-11.0); Mono # (Auto) 0.7 th/mm3 (0.0-0.9); Mono % (Auto) 7.4 % (0.0-8.0); Platelet Count 352 th/mm3 (150-450); Red Blood Count 4.45 mil/mm3 (4.00-5.30)
[2018-01-06 18:10] VITALS: RESP 16
[2018-01-07] MEDS: clonazePAM 1 MG Tablet PO PRN ×2 (05:39→13:20)
[2018-01-07 06:04] VITALS: BP 138/87; PULSE 88; TEMP 98; O2SAT 98
[2018-01-07] MEDS: amLODIPine 10 MG Tablet PO SCH (08:23)
[2018-01-07] MEDS: Metoprolol Tartrate 25 MG Tablet PO SCH (08:23)
--- NOTE | 2018-01-07 12:42 | P.PNIM ---
Subjective Interval history: Patient states "I am having a panic attack". She is screaming and yelling in the unit. Not cooperating for exam. Physical Exam Vital signs: Vital Signs 01/06/18 17:49 01/07/18 06:03 Temperature 98.2 F 98.0 F Pulse Rate 91 H 88 Respiratory Rate 16 16 Blood Pressure 141/85 H 138/87 Pulse Oximetry 99 98 Intake & Output 01/06/18 01/07/18 01/07/18 18:59 06:59 18:59 Weight 102.3 kg Narrative: Unable to perform exam. Patient is hysterical and not complying. Results - Labs CBC & Chem 7: 01/06/18 15:35 01/06/18 05:39 Laboratory Results - last 24 hr 01/06/18 01/06/18 05:39 15:35 WBC 10.0 RBC 4.45 Hgb 12.0 Hct 37.0 MCV 83.2 MCH 27.0 MCHC 32.5 RDW 15.0 Plt Count 352 MPV 7.9 Neut % (Auto) 70.0 Lymph % (Auto) 20.8 Dickens % (Auto) 7.4 Eos % (Auto) 1.3 Baso % (Auto) 0.5 Neut # (Auto) 7.0 Lymph # (Auto) 2.1 Dickens # (Auto) 0.7 Eos # (Auto) 0.1 Baso # (Auto) 0.1 WBC Differential . Differential Comment Auto diff final Hemoglobin A1c 5.5 Assessment and Plan - Plan 37-year-old female who initially came to the hospital is intentional overdose with Percocet and baclofen. Unable to protect her airway, she is in acute hypoxic and hypercarbic respiratory failure she was intubated. Patient had toxic encephalopathy secondary to narcotic overdose. She was in critical care and was treated IV Mucomyst per poison control. Patient was extubated 01/02/18. She is being monitored for benzodiazepine withdrawals. Followed by psychiatry and was started on low-dose Klonopin. She is now admitted to inpatient psychiatry unit for further evaluation. Hospitalist service consulted for medical management. Possible intentional overdose Depression -Managed by psychiatry team -Patient very agitated today and requesting to be discharged. HTN, better controlled -Continue Norvasc and metoprolol 12.5 mg -Clonidine as needed -Monitor BP trend. Adjust medication as needed. Percocet and baclofen overdose -Has been treated by IV Mucomyst and was cleared by poison control -Tylenol level as check 01/01/18 -5.8 Benzodiazepine dependence Opioid dependence -On low dose Klonopin to prevent withdrawal seizures -Seizure precautions -Patient was restarted on Percocet 7.5 mg/325 mg by primary team Current tobacco use -Counseled -Nicotine patch DVT prop ambulatory
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
== END 2018-01-07 15:35 ==
LOC: H270 22:20
PROVIDERS: ADMIT Psychiatry & Neurology Psychiatry; ATTEND Psychiatry & Neurology Psychiatry